=== PATIENT | male | born 1930 | race Caucasian/White ===

== ENCOUNTER 2019-05-18 14:46 | Emergency (ER) | payer MEDICARE, OTHER ==
[~2019-05-18] VITALS: Ht 172.7 cm; Wt 86.6 kg
[~2019-05-18 14:46] MED LIST: ASP325T PO; BICA50TA4 PO; CPR500T PO; DNPZ5T PO; GEMF600T3 PO; GLYB2.5T4 PO; HYDR-91 PO; HYOS0.1216 PO; LISI40TA PO; MTP50T PO; PHEN200T27 PO; SIMV40TA4 PO; TRAM50TA2 PO
--- NOTE | 2019-05-18 14:55 | ED Neurological Problem ---
General Source: patient, family, EMS Exam Limitations: no limitations History of Present Illness Date Seen by Provider: May 18, 2019 Time Seen by Provider: 14:50 Initial Comments 88-year-old male presents with right-sided facial droop and right-sided leg weakness. Patient symptoms started 3 days ago. Patient reports that they were over at the [facility] when it happened. Reports that he knew he had a stroke. Patient got home from [facility] about 15 minutes ago so they called EMS. Patient at this time states he doesn't want anything done. He is here because his called EMS. Patient denies any other systemic complaints. Patient reports a previous TIA. Allergies and Home Medications Allergies Coded Allergies: No Known Drug Allergies (Unverified , 07/08/12) Home Medications Aspirin 325 Mg Tab, 325 MG PO DAILY, (Reported) Bicalutamide 50 Mg Tablet, 50 MG PO DAILY, (Reported) Ciprofloxacin 500 Mg Tablet, 1 TAB PO BID, (Reported) Donepezil Hcl 5 Mg Tablet, 1 TAB PO DAILY, (Reported) Gemfibrozil 600 Mg Tablet, 1 EACH PO BID, (Reported) Glyburide 2.5 Mg Tablet, 1 EACH PO DAILY, (Reported) Hydrocodone Bit/Acetaminophen 1 Each Tablet, 1-2 EA PO Q4HR PRN, (Reported) Hyoscyamine Sulfate 0.125 Mg Tab, 1-2 EACH PO Q4HR PRN, (Reported) Lisinopril 40 Mg Tablet, 40 MG PO DAILY, (Reported) Metoprolol Tartrate 50 Mg Tablet, 1 EACH PO BID, (Reported) Phenazopyridine Hcl 200 Mg Tablet, 1 EACH PO TID PRN, (Reported) Simvastatin 40 Mg Tablet, 40 MG PO HS, (Reported) Tramadol Hcl 50 Mg Tablet, 50-100 MG PO Q6H PRN, (Reported) Patient Home Medication List Home Medication List Reviewed: Yes Review of Systems Review of Systems Constitutional: see HPI; No chills, No fever Eyes: No Symptoms Reported Ears, Nose, Mouth, Throat: see HPI Respiratory: no symptoms reported Cardiovascular: no symptoms reported Gastrointestinal: no symptoms reported Genitourinary: no symptoms reported Musculoskeletal: see HPI Skin: no symptoms reported Psychiatric/Neurological: See HPI Past Knkutmq-Awuhut-Lxiolh Hx Past Med/Social Hx: Reviewed Nursing Past Med/Soc Hx Immunizations Up To Date Date of Influenza Vaccine: Feb 26, 2012 Physical Exam Vital Signs Vital Signs - First Documented 05/18/19 14:46 Temp 37.8 Pulse 50 Resp 18 B/P (MAP) 171/69 (103) Pulse Ox 97 O2 Delivery Room Air Capillary Refill : Height, Weight, BMI Height: '" Weight: lbs. oz. kg; BMI Method: General Appearance: no apparent distress Respiratory: chest non-tender, lungs clear Cardiovascular: normal peripheral pulses, regular rate, rhythm Neurologic/Psychiatric: alert, normal mood/affect, oriented x 3, other (patient with obvious right-sided facial droop along with decreased rate weakness to the right lower extremity. He is unable to lift it against gravity. He can move it. Patient is able to move his upper extremity with no issues. Patient denies any vision changes.) Crainal Nerves: PERRL Motor/Sensory: weak motor strength RLE Skin: normal color, warm/dry Lymphatic: no adenopathy Progress/Results/Core Measures Results/Orders Lab Results Laboratory Tests Test 05/18/19 15:25 05/18/19 15:35 Range/Units White Blood Count 7.2 4.3-11.0 10^3/uL Red Blood Count 4.84 4.35-5.85 10^6/uL Hemoglobin 14.6 13.3-17.7 G/DL Hematocrit 46 40-54 % Mean Corpuscular Volume 94 80-99 FL Mean Corpuscular Hemoglobin 30 25-34 PG Mean Corpuscular Hemoglobin Concent 32 32-36 G/DL Red Cell Distribution Width 13.3 10.0-14.5 % Platelet Count 170 130-400 10^3/uL Mean Platelet Volume 9.6 7.4-10.4 FL Neutrophils (%) (Auto) 69 42-75 % Lymphocytes (%) (Auto) 19 12-44 % Monocytes (%) (Auto) 10 0-12 % Eosinophils (%) (Auto) 2 0-10 % Basophils (%) (Auto) 1 0-10 % Neutrophils # (Auto) 4.9 1.8-7.8 X 10^3 Lymphocytes # (Auto) 1.3 1.0-4.0 X 10^3 Monocytes # (Auto) 0.7 0.0-1.0 X 10^3 Eosinophils # (Auto) 0.1 0.0-0.3 10^3/uL Basophils # (Auto) 0.0 0.0-0.1 10^3/uL Sodium Level 142 135-145 MMOL/L Potassium Level 5.4 H 3.6-5.0 MMOL/L Chloride Level 105 98-107 MMOL/L Carbon Dioxide Level 24 21-32 MMOL/L Anion Gap 13 5-14 MMOL/L Blood Urea Nitrogen 27 H 7-18 MG/DL Creatinine 1.66 H 0.60-1.30 MG/DL Estimat Glomerular Filtration Rate 39 BUN/Creatinine Ratio 16 Glucose Level 112 H 70-105 MG/DL Calcium Level 9.4 8.5-10.1 MG/DL Corrected Calcium 9.5 8.5-10.1 MG/DL Total Bilirubin 0.5 0.1-1.0 MG/DL Aspartate Amino Transf (AST/SGOT) 22 5-34 U/L Alanine Aminotransferase (ALT/SGPT) 11 0-55 U/L Alkaline Phosphatase 69 40-136 U/L Total Protein 6.7 6.4-8.2 GM/DL Albumin 3.9 3.2-4.5 GM/DL Urine Color YELLOW Urine Clarity CLEAR Urine pH 5.5 5-9 Urine Specific Mobile >1.030 1.016-1.022 Urine Protein TRACE NEGATIVE Urine Glucose (UA) NEGATIVE NEGATIVE Urine Ketones NEGATIVE NEGATIVE Urine Nitrite NEGATIVE NEGATIVE Urine Bilirubin NEGATIVE NEGATIVE Urine Urobilinogen 0.2 < = 1.0 MG/DL Urine Leukocyte Esterase NEGATIVE NEGATIVE Urine RBC (Auto) NEGATIVE NEGATIVE Urine RBC NONE /HPF Urine WBC NONE /HPF Urine Squamous Epithelial Cells 0-2 /HPF Urine Crystals NONE /LPF Urine Bacteria NONE /HPF Urine Casts NONE /LPF Urine Mucus TRACE /LPF Urine Culture Indicated NO My Orders Orders - COURTNEY,MARCUS L DO Ct Head Wo-R/O Stroke (05/18/19 15:03) Cbc With Automated Diff (05/18/19 15:16) Comprehensive Metabolic Panel (05/18/19 15:16) Ua Culture If Indicated (05/18/19 15:16) Vital Signs/I&O 05/18/19 05/18/19 14:46 15:40 Temp 37.8 Pulse 50 45 Resp 18 16 B/P (MAP) 171/69 (103) 166/67 Pulse Ox 97 95 O2 Delivery Room Air Progress Progress Note : Time: 16:00 Progress Note Patient is adamant he does not want to be admitted. Family was requesting transfer to an elevated but patient states that he does not want to be transferred. We were able to get patient up and ambulate using a walker. Which he was able to do. We called and made an appointment for [address] Alvarez office. Patient will be discharged home as requested Departure Impression Primary Impression: CVA (cerebral vascular accident) Qualified Codes: I63.9 - Cerebral infarction, unspecified Additional Impression: Weakness of right side of body Disposition: HOME, SELF-CARE Condition: Improved Departure-Patient Inst. Referrals: ANABEL CARR MD (PCP/Family) Primary Care Physician Patient Instructions: Transient Ischemic Attack (DC), Right-Side Stroke Add. Discharge Instructions: Keep appointment for 220 tomorrow afternoon at [facility]. Return to the ER as needed MARCUS COURTNEY DO May 18, 2019 14:55
[2019-05-18 15:35] LABS: BASOPHILS % (AUTO) 1 % (0-10); EOSINOPHILS # (AUTO) 0.1 10^3/uL (0.0-0.3); EOSINOPHILS % (AUTO) 2 % (0-10); HEMATOCRIT 46 % (40-54); HEMOGLOBIN 14.6 G/DL (13.3-17.7); LYMPHOCYTES # (AUTO) 1.3 X 10^3 (1.0-4.0); LYMPHOCYTES % (AUTO) 19 % (12-44); MEAN CORPUSCULAR HEMOGLOBIN 30 PG (25-34); MEAN CORPUSCULAR HGB CONC 32 G/DL (32-36); MEAN CORPUSCULAR VOLUME 94 FL (80-99); MEAN PLATELET VOLUME 9.6 FL (7.4-10.4); MONOCYTES # (AUTO) 0.7 X 10^3 (0.0-1.0); MONOCYTES % (AUTO) 10 % (0-12); NEUTROPHILS # (AUTO) 4.9 X 10^3 (1.8-7.8); NEUTROPHILS % (AUTO) 69 % (42-75); PLATELET COUNT 170 10^3/uL (130-400); RED CELL DISTRIBUTION WIDTH 13.3 % (10.0-14.5); WHITE BLOOD COUNT 7.2 10^3/uL (4.3-11.0)
--- NOTE | 2019-05-18 15:35 | Diagnostic Imaging Report ---
PROCEDURE: CT head wo r/o stroke. TECHNIQUE: Multiple contiguous axial images were obtained through the brain without the use of intravenous contrast. Auto Exposure Controls were utilized during the CT exam to meet ALARA standards for radiation dose reduction. INDICATION: Right-sided weakness and facial droop. History of prior TIAs. COMPARISON: None. FINDINGS: A right frontal approach [employer] PERSON shunt is seen with the tip in the third ventricle. 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 Focal decreased attenuation is seen in the left cerebellar hemisphere. Old infarct is noted in the left frontal lobe. Scattered chronic microvascular disease is visualized in the periventricular and subcortical white matter. No large acute territorial ischemia is seen. Generalized parenchymal volume loss is noted. No evidence of acute hydrocephalus. The paranasal sinuses and mastoid air cells are well pneumatized. Bilateral lens implants are noted. No acute skull fractures are seen. IMPRESSION: 1. No evidence of large acute territorial ischemia. 2. Likely old infarcts are seen involving the left frontal lobe and left cerebellar hemisphere. These likely contribute to chronic right-sided weakness. Additional areas of scattered chronic microvascular disease are present. Consider brain MRI to further evaluate if symptoms continue. 3. Right frontal approach [employer] PERSON shunt with the tip in the third ventricle. 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 No evidence of obstructive hydrocephalus. Dictated by: Dictated on workstation # [id number]
[2019-05-18 15:40] VITALS: BP 166/67
[2019-05-18 15:43] LABS: BILIRUBIN,URINE NEGATIVE (NEGATIVE); CLARITY,URINE CLEAR; COLOR,URINE YELLOW; GLUCOSE, URINE (UA) NEGATIVE (NEGATIVE); KETONES,URINE NEGATIVE (NEGATIVE); LEUKOCYTE ESTERASE ,URINE NEGATIVE (NEGATIVE); NITRITE,URINE NEGATIVE (NEGATIVE); PH,URINE 5.5 (5-9); PROTEIN,URINE TRACE (NEGATIVE); SQUAMOUS EPITHELIAL CELL,UR 0-2 /HPF
[2019-05-18 15:53] LABS: CREATININE SERUM 1.66 MG/DL (0.60-1.30); POTASSIUM 5.4 MMOL/L (3.6-5.0)
[2019-05-18 15:54] LABS: ALBUMIN 3.9 GM/DL (3.2-4.5); BILIRUBIN,TOTAL 0.5 MG/DL (0.1-1.0); CALCIUM 9.4 MG/DL (8.5-10.1); TOTAL PROTEIN 6.7 GM/DL (6.4-8.2)
--- NOTE | 2019-05-18 16:00 | NUR ---
Patient ambulated with walker approximately 50 feet without difficulty.
[2019-05-18 16:20] VITALS: BP 151/68
== END 2019-05-18 16:20 | disposition home or self-care (01) ==
LOC: EDUNIT# 14:46 → ER FS 14:48
DX: I63.9 Cerebral infarction, unspecified (principal); Z79.82 Long term (current) use of aspirin
CPT/HCPCS: 36415; 70450; 80053; 81000; 85025

== ENCOUNTER → 2019-11-06 | Outpatient (CLI) | payer MEDICARE ==
[2019-11-06 12:24] LABS: BILIRUBIN,TOTAL 0.6 MG/DL (0.1-1.0); CALCIUM 9.1 MG/DL (8.5-10.1); CREATININE SERUM 1.71 MG/DL (0.60-1.30); POTASSIUM 4.5 MMOL/L (3.6-5.0)
[2019-11-06 12:25] LABS: ALBUMIN 4.1 GM/DL (3.2-4.5); TOTAL PROTEIN 6.6 GM/DL (6.4-8.2)
== END ==
LOC: LAB FS 11:19
PROVIDERS: ATTEND Family Medicine
DX: E78.00 Pure hypercholesterolemia, unspecified (principal); E11.9 Type 2 diabetes mellitus without complications; Z79.899 Other long term (current) drug therapy
CPT/HCPCS: 36415; 80053; 80061; 83036

== ENCOUNTER → 2019-12-24 | Outpatient (CLI) | payer MEDICARE | LOC: WOUNDCARE 08:55 | PROVIDERS: ATTEND Surgery | DX: E11.621 Type 2 diabetes mellitus with foot ulcer (principal); E11.52 Type 2 diabetes mellitus with diabetic peripheral angiopathy with gangrene; L97.512 Non-pressure chronic ulcer of other part of right foot with fat layer exposed; I70.235 Atherosclerosis of native arteries of right leg with ulceration of other part of foot ==

== ENCOUNTER → 2020-01-30 | Outpatient (CLI) | payer MEDICARE | LOC: LAB FS 16:53 | PROVIDERS: ATTEND Family Medicine | DX: L89.892 Pressure ulcer of other site, stage 2 (principal) | CPT/HCPCS: 87070; 87205 ==

== ENCOUNTER 2020-03-30 17:07 | Inpatient (IN) | payer MEDICARE ==
[~2020-03-30] VITALS: Ht 172 cm; Wt 81.8 kg
[2020-03-30] MEDS ORDERED: NS IV 1000 ML 2,000 ML ONE (17:29)
[2020-03-30] MEDS ORDERED: LACTATED RINGERS 1,000 ML IV ONE (17:42)
[2020-03-30] MEDS ORDERED: NS IV 1000 ML 1,000 ML IV SCH ×3 (17:42)
[2020-03-30] MEDS: NS IV ONE ×2 (17:45→19:30)
--- NOTE | 2020-03-30 17:50 | NUR ---
Add'l IV placed RAC as pt fighting staff and RN unable to leave bedside or scan IV fluids being hung to treat hypotension.
--- NOTE | 2020-03-30 17:51 | ED Respiratory ---
General Chief Complaint: Respiratory Problems Stated Complaint: SOA Nursing Triage Note: Pt presents to ED from [facility] with report of positive COVID patient after testing on the . Pt was Sats in low 80's by [facility]. EMS found pt 88% initially and a Duoneb given then O2 at 4L. SaO2 97%. Full Code. Hx stroke and brain anerysm coiled. Source: EMS, senior care records Exam Limitations: other (probably dementia) History of Present Illness Date Seen by Provider: Mar 30, 2020 Time Seen by Provider: 17:46 Initial Comments Apparently the patient is COVID 19 positive and the senior care was noted today to have shortness of breath and low sats. Ambulance was called according to their report he's having trouble getting his albuterol nebulizers sats were in the 80 range she was placed on oxygen given a nebulized treatment and his sats normalize. He was noted to be hypotensive on arrival patient denies any pain or discomfort he looks well overall but is not a accurate historian. Allergies and Home Medications Allergies Coded Allergies: No Known Drug Allergies (Unverified , 07/08/12) Home Medications Aspirin 325 Mg Tab, 325 MG PO DAILY, (Reported) Bicalutamide 50 Mg Tablet, 50 MG PO DAILY, (Reported) Ciprofloxacin 500 Mg Tablet, 1 TAB PO BID, (Reported) Donepezil Hcl 5 Mg Tablet, 1 TAB PO DAILY, (Reported) Gemfibrozil 600 Mg Tablet, 1 EACH PO BID, (Reported) Glyburide 2.5 Mg Tablet, 1 EACH PO DAILY, (Reported) Hydrocodone Bit/Acetaminophen 1 Each Tablet, 1-2 EA PO Q4HR PRN, (Reported) Hyoscyamine Sulfate 0.125 Mg Tab, 1-2 EACH PO Q4HR PRN, (Reported) Lisinopril 40 Mg Tablet, 40 MG PO DAILY, (Reported) Metoprolol Tartrate 50 Mg Tablet, 1 EACH PO BID, (Reported) Phenazopyridine Hcl 200 Mg Tablet, 1 EACH PO TID PRN, (Reported) Simvastatin 40 Mg Tablet, 40 MG PO HS, (Reported) Tramadol Hcl 50 Mg Tablet, 50-100 MG PO Q6H PRN, (Reported) Patient Home Medication List Home Medication List Reviewed: Yes Review of Systems Review of Systems Constitutional: see HPI (review of systems was unable to be performed due to the patient's altered mental status and inability to recall any events) All Other Systems Reviewed Negative Unless Noted: No Past Bfkbqzw-Zkjakk-Gydanl Hx Past Med/Social Hx: Reviewed Nursing Past Med/Soc Hx Patient Social History Alcohol Use: Denies Use Recreational Drug Use: No Smoking Status: Former Smoker Type Used: Cigarettes Former Smoker, Quit: May 28, 1994 2nd Hand Smoke Exposure: No Recent Foreign Travel: No Contact w/Someone Who Travel: No Recent Infectious Disease Expo: Yes (COVID outbreak at [facility]) Recent Hopitalizations: No Physical Abuse: No Sexual Abuse: No Mistreated: No Fear: No Immunizations Up To Date Date of Influenza Vaccine: Jan 26, 2019 Seasonal Allergies Seasonal Allergies: Yes Past Medical History Orthopedic Respiratory: No Cardiac: Yes (STENTS X3 LAST ONE 2003) Aneurysm, High Cholesterol, Hypertension Neurological: Yes (COIL PROCEDURE IN 1998, [employer]CIAL [employer] SHUNT PLACEMENT) TIA Genitourinary: Yes Benign Prostatic Hyperpl Gastrointestinal: No Musculoskeletal: Yes (ARTHRITIS) Endocrine: Yes HEENT: Yes Hearing Impairment: Hard of Hearing Cancer: No Psychosocial: No Integumentary: No Blood Disorders: No Physical Exam Vital Signs - First Documented 03/30/20 17:08 Pulse Ox 97 O2 Delivery Nasal Cannula O2 Flow Rate 4.00 Capillary Refill : Less Than 3 Seconds Height: '" Weight: lbs. oz. kg; 25.00 BMI Method: General Appearance: WD/WN, no apparent distress Eyes: Bilateral Eye Normal Inspection, Bilateral Eye PERRL HEENT: normal ENT inspection; No scleral icterus (R), No scleral icterus (L) Neck: non-tender, full range of motion, supple Respiratory: chest non-tender, lungs clear, normal breath sounds, other (mild tachypnea) Cardiovascular: normal peripheral pulses, regular rate, rhythm, no edema, tachycardia Gastrointestinal: normal bowel sounds, non tender, soft Extremities: normal range of motion, non-tender, normal inspection Neurologic/Psychiatric: sat act instructor II-XII nml as tested, no motor/sensory deficits Skin: normal color, warm/dry Focused Exam Lactate Level 03/30/20 17:25: Lactic Acid Level 3.57*H Lactic Acid Level Laboratory Tests Test 03/30/20 17:25 Lactic Acid Level 3.57 MMOL/L (0.50-2.00) *H Progress/Results/Core Measures Suspected Sepsis Recent Fever Within 48 Hours: No Infection Criteria Present: Documented Infection New/Unexplained Altered Menta: No Sepsis Screen: Possible Severe Sepsis Risk SIRS Temperature: Pulse: 117 Respiratory Rate: 31 Laboratory Tests 03/30/20 17:25: White Blood Count 12.8H Blood Pressure 81 /63 Mean: 69 03/30/20 17:25: Lactic Acid Level 3.57*H Laboratory Tests 03/30/20 17:25: Creatinine 2.52H, INR Comment 1.0, Platelet Count 120L, Total Bilirubin 0.7 Results/Orders Lab Results Laboratory Tests Test 03/30/20 17:25 Range/Units White Blood Count 12.8 H 4.3-11.0 10^3/uL Red Blood Count 4.41 4.35-5.85 10^6/uL Hemoglobin 13.1 L 13.3-17.7 G/DL Hematocrit 40 40-54 % Mean Corpuscular Volume 91 80-99 FL Mean Corpuscular Hemoglobin 30 25-34 PG Mean Corpuscular Hemoglobin Concent 33 32-36 G/DL Red Cell Distribution Width 13.5 10.0-14.5 % Platelet Count 120 L 130-400 10^3/uL Mean Platelet Volume 10.7 H 7.4-10.4 FL Immature Granulocyte % (Auto) 1 % Neutrophils (%) (Auto) 89 H 42-75 % Lymphocytes (%) (Auto) 5 L 12-44 % Monocytes (%) (Auto) 6 0-12 % Eosinophils (%) (Auto) 0 0-10 % Basophils (%) (Auto) 0 0-10 % Neutrophils # (Auto) 11.3 H 1.8-7.8 X 10^3 Lymphocytes # (Auto) 0.6 L 1.0-4.0 X 10^3 Monocytes # (Auto) 0.8 0.0-1.0 X 10^3 Eosinophils # (Auto) 0.0 0.0-0.3 10^3/uL Basophils # (Auto) 0.0 0.0-0.1 10^3/uL Immature Granulocyte # (Auto) 0.1 0.0-0.1 10^3/uL Neutrophils % (Manual) 71 % Lymphocytes % (Manual) 13 % Monocytes % (Manual) 2 % Eosinophils % (Manual) 0 % Basophils % (Manual) 0 % Band Neutrophils 14 % Blood Morphology Comment NORMAL Prothrombin Time 13.6 12.2-14.7 SEC INR Comment 1.0 0.8-1.4 Activated Partial Thromboplast Time 31 24-35 SEC Sodium Level 140 135-145 MMOL/L Potassium Level 4.6 3.6-5.0 MMOL/L Chloride Level 102 98-107 MMOL/L Carbon Dioxide Level 15 L 21-32 MMOL/L Anion Gap 23 H 5-14 MMOL/L Blood Urea Nitrogen 58 H 7-18 MG/DL Creatinine 2.52 H 0.60-1.30 MG/DL Estimat Glomerular Filtration Rate 24 BUN/Creatinine Ratio 23 Glucose Level 222 H 70-105 MG/DL Lactic Acid Level 3.57 *H 0.50-2.00 MMOL/L Calcium Level 9.1 8.5-10.1 MG/DL Corrected Calcium 9.3 8.5-10.1 MG/DL Total Bilirubin 0.7 0.1-1.0 MG/DL Aspartate Amino Transf (AST/SGOT) 26 5-34 U/L Alanine Aminotransferase (ALT/SGPT) 8 0-55 U/L Alkaline Phosphatase 66 40-136 U/L Total Protein 7.2 6.4-8.2 GM/DL Albumin 3.8 3.2-4.5 GM/DL Micro Results Microbiology 03/30/20 Influenza Types A,B Antigen (KARMEN) - Final, Complete My Orders Orders - ZOEY BRITO DO Ns Iv 1000 Ml (Sodium Chloride 0.9%) (03/30/20 17:29) Cbc With Automated Diff (03/30/20 17:42) Comprehensive Metabolic Panel (03/30/20 17:42) Blood Culture (03/30/20 17:42) Sputum Culture (03/30/20 17:42) Urinalysis (03/30/20 17:42) Urine Culture (03/30/20 17:42) Protime With Inr (03/30/20 17:42) Partial Thromboplastin Time (03/30/20 17:42) Chest 1 View Ap/Pa Only (03/30/20 17:42) Ed Iv/Invasive Line Start (03/30/20 17:42) Ed Iv/Invasive Line Start (03/30/20 17:42) Ekg Tracing (03/30/20 17:42) Vital Signs Adult Sepsis Patie Q15M (03/30/20 17:42) O2 (03/30/20 17:42) Lactic Acid Analyzer (03/30/20 17:42) Influenza A And B Antigens (03/30/20 17:42) Lactated Ringers (Lr 1000 Ml Iv Solution (03/30/20 17:42) Ns Iv 1000 Ml (Sodium Chloride 0.9%) (03/30/20 17:42) Ns Iv 1000 Ml (Sodium Chloride 0.9%) (03/30/20 17:42) Ns Iv 1000 Ml (Sodium Chloride 0.9%) (03/30/20 17:42) Ns Iv 1000 Ml (Sodium Chloride 0.9%) (03/30/20 17:45) Covid-19 External Lab Results (03/30/20 17:42) Isolation Central Supply Req (03/30/20 17:42) Manual Differential (03/30/20 17:25) Vital Signs/I&O 03/30/20 03/30/20 03/30/20 03/30/20 17:08 17:09 17:09 17:15 Temp 36.5 36.5 Pulse 117 117 117 Resp 31 31 31 B/P (MAP) 81/63 (69) 81/63 85/53 Pulse Ox 97 99 99 97 O2 Delivery Nasal Cannula Nasal Cannula O2 Flow Rate 4.00 4.00 4.00 4.00 03/30/20 03/30/20 03/30/20 03/30/20 17:30 17:45 18:00 18:15 Pulse 116 115 105 92 Resp 29 29 29 27 B/P (MAP) 73/45 82/46 117/99 129/82 Pulse Ox 99 98 99 100 O2 Flow Rate 3.00 2.00 2.00 0 03/30/20 03/30/20 03/30/20 03/30/20 18:30 18:45 19:00 19:45 Pulse 98 102 102 94 Resp 27 25 B/P (MAP) 158/100 138/90 141/119 116/65 Pulse Ox 100 100 98 94 O2 Delivery Room Air Room Air O2 Flow Rate 0 0 Capillary Refill : Less Than 3 Seconds Blood Pressure Mean: 69 Progress Note : Progress Note Patient is a 89-year-old senior care resident who is brought in code positive for increasing respiratory distress and hypoxemia. The exact timing of his COVID positiveness and his symptomatology has not been able to be verified COVID positive test apparently sometime last week. Patient has several other comorbid problems including prior stroke which is been recent. Differential includes pneumonia COVID pneumonia sepsis UTI plan labs screening respiratory support complains of evaluation and probable admission ECG Initial ECG Impression Date: Mar 30, 2020 Initial ECG Impression Time: 17:38 Initial ECG Rhythm: S.Tach Initial ECG Intervals: QRS (right bundle branch block pattern) Comment EKG shows sinus tachycardia with a right bundle branch block possible evidence of old anterior ID no acute ST segment abnormality detected Departure Impression Primary Impression: COVID-19 Additional Impression: STEVE (acute kidney injury) Disposition: ADMITTED INPATIENT Condition: Improved Admissions Decision to Admit Reason: Admit from ER (General) Time/Decision to Admit Time: 19:23 Transfer Transfer Reason: Exceeds level of care Time Spoke to Accepting Phy: 19:22 Transfer Progress Notes Spoke to Dr. Flores who requested I discussed the patient's transfer with family members prior to transferring I did discuss it with the patient's oldest daughter Janett phone number [phone] who is the medical power of rig welder she did agree that she wanted Mr. Singh transferred and wanted full medical therapy at this time. She was accepted to medical telemetry bed transfer rearranged. Transfer Time: 19:23 Method of Transfer: EMS Departure-Patient Inst. Referrals: ANABEL CARR MD (PCP/Family) Primary Care Physician ZOEY BRITO DO Mar 30, 2020 17:51
[2020-03-30 17:53] LABS: HEMATOCRIT 40 % (40-54); HEMOGLOBIN 13.1 G/DL (13.3-17.7); MEAN CORPUSCULAR HEMOGLOBIN 30 PG (25-34); MEAN CORPUSCULAR HGB CONC 33 G/DL (32-36); MEAN CORPUSCULAR VOLUME 91 FL (80-99); WHITE BLOOD COUNT 12.8 10^3/uL (4.3-11.0)
[2020-03-30 17:54] LABS: BASOPHILS % (AUTO) 0 % (0-10); EOSINOPHILS % (AUTO) 0 % (0-10); LYMPHOCYTES # (AUTO) 0.6 X 10^3 (1.0-4.0); LYMPHOCYTES % (AUTO) 5 % (12-44); MEAN PLATELET VOLUME 10.7 FL (7.4-10.4); MONOCYTES # (AUTO) 0.8 X 10^3 (0.0-1.0); MONOCYTES % (AUTO) 6 % (0-12); NEUTROPHILS # (AUTO) 11.3 X 10^3 (1.8-7.8); NEUTROPHILS % (AUTO) 89 % (42-75); PLATELET COUNT 120 10^3/uL (130-400)
[2020-03-30 18:00] LABS: PROTHROMBIN TIME PATIENT 13.6 SEC (12.2-14.7)
--- NOTE | 2020-03-30 18:00 | NUR ---
Gogo lopez spoke with Ludy from [place] that is managing phone for ED nurses. Brief update given of ER work up orders and will return call when work up complete and plans decided by
--- NOTE | 2020-03-30 18:00 | NUR ---
RN relayed questions to ask to Dr about all the IV fluids ordered and what total amt total to be given. NIBP assessed and Dr reports to administer the 2 L NS and stop, hypotension resolved.
--- NOTE | 2020-03-30 18:15 | NUR ---
Unable to straight cath pt as fighting 2 staff and swearing and ghrabbing. Unable to pass a 15 Fr cath.
--- NOTE | 2020-03-30 18:15 | NUR ---
Pt fighting nurse and hitting and cussing RAC IV begins bleeding profusely at site and IV fluids running with the blood on arm. Catheter is bent and leaking. IV dc'd with explaining to patient he requires 2 IV's and it needs restarted. Pt at this point argues staff doing painful procedures and explained the procedures were explained and pt continued to hit at staff and someone having to hold.
[2020-03-30 18:17] LABS: ALBUMIN 3.8 GM/DL (3.2-4.5); BILIRUBIN,TOTAL 0.7 MG/DL (0.1-1.0); CALCIUM 9.1 MG/DL (8.5-10.1); CREATININE SERUM 2.52 MG/DL (0.60-1.30); POTASSIUM 4.6 MMOL/L (3.6-5.0); TOTAL PROTEIN 7.2 GM/DL (6.4-8.2)
--- NOTE | 2020-03-30 18:30 | NUR ---
Pt had restarted IV by this tag writer to Flory MATTHEW with 22 ga and IV fluid continued and infused the remaining 150 ml.
--- NOTE | 2020-03-30 18:39 | NUR ---
Confirmed with Dr the 2 L bolus given and NIBP 158/115 with fully agitated patient becoming calmer as staff nurse reports no more procedures presently and certainly not if removing them immediately by him. Pt explained Dr may have to offer that if no cooperation and removing tubes/lines a continued threat with explainations having been given that soft wrist restraints may be requested.
--- NOTE | 2020-03-30 18:40 | Diagnostic Imaging Report ---
INDICATION: COVID positive and sepsis. Time of exam: 6:21 PM No prior studies are available for comparison. Heart size is normal. There is some questionable infiltrate in the left base. There also appears to be some minimal patchy infiltrate right mid lung. No effusion or pneumothorax is identified. Pulmonary vascularity is normal. IMPRESSION: Findings concerning for patchy infiltrate right midlung and left base. Dictated by: Dictated on workstation # [id number]
[2020-03-30 18:41] LABS: BAND NEUTROPHILS 14 %; BASOPHILS % (MANUAL) 0 %; EOSINOPHILS % (MANUAL) 0 %; LYMPHOCYTES % (MANUAL) 13 %; MONOCYTES % (MANUAL) 2 %; NEUTROPHILS % (MANUAL) 71 %; RBC MORPH NORMAL
--- NOTE | 2020-03-30 19:15 | NUR ---
Dr Baker called to dgt, Gogo MONTIEL and spoke with all results and discussing pt's Advanced Directives whether there are legal documents and Code status. Dgt wants patient aggressively treated and transferred to [facility] and remain Full Code status.
--- NOTE | 2020-03-30 19:30 | NUR ---
Report to Kimberly Cordova RN. Pt is resting on cart quietly and occas moans or clears throat but no witnessed attempt to get up or tampering with medical equipment. O2 remains off. Intermittant removal of pt's mask.
--- NOTE | 2020-03-30 20:30 | NUR ---
DR. FAGAN NOTIFIED OF PATIENT'S ARRIVAL ON UNIT. NEW ORDERS RECEIVED FOR DECADRON 6 MG PO DAILY AND ZITHROMAX 500 MG IV ONCE DAILY FOR 3 DAYS.
--- NOTE | 2020-03-30 20:43 | NUR ---
Pt report to Kristy ONEAL for room 433. EMS enroute for transfer. Called Gogo his POA to notify of room number.
[2020-03-30 22:05] VITALS: BP 131/61
--- NOTE | 2020-03-30 22:05 | NUR ---
VILMA BOND admitted to room 433-1, with an admitting diagnosis of COVID/STEVE , on 03/30/20 from [place] via [facility], accompanied by EMS STAFF. VILMA BOND introduced to surroundings, call light, bed controls, phone, TV, temperature control, lights, meal times, smoking policy, visitor policy, side rail policy, bathrooms and showers. Patient Rights given to patient in the handbook. VILMA BOND verbalizes understanding that [facility] is not responsible for the loss or damage to any personal effects or valuables that are kept in the patients possession during their hospitalization.
--- NOTE | 2020-03-30 22:30 | NUR ---
TIME CORRECTED FROM PREVIOUS NOTE OF 2029. CORRECT TIME 2229. DR. FAGAN NOTIFIED OF PATIENT'S ARRIVAL ON UNIT. NEW ORDERS RECEIVED FOR DECADRON 6 MG PO DAILY AND ZITHROMAX 500 MG IV ONCE DAILY FOR 3 DAYS.
[2020-03-30 22:59] VITALS: BP 81/61
[2020-03-30] MEDS ORDERED: RT-ALBUTEROL INHALER HFA (VENTOLIN HFA) 18 GM IH PRN (23:15)
[2020-03-30] MEDS: NS IV 1000 ML 1,000 ML IV SCH (23:16)
--- NOTE | 2020-03-30 23:32 | NUR ---
PATIENT RATING PAIN [address] FAGAN NOTIFIED. NEW ORDER RECEIVED FOR TRAMADOL 50 MG PO Q6 PRN. WILL CONTINUE TO MONITOR.
[2020-03-31] VITALS (11 sets, daily range): BP systolic 125–180; BP diastolic 60–88
[2020-03-31 05:50] LABS: BASOPHILS % (AUTO) 0 % (0-10); EOSINOPHILS % (AUTO) 0 % (0-10); HEMATOCRIT 37 % (40-54); HEMOGLOBIN 11.8 g/dL (13.3-17.7); LYMPHOCYTES # (AUTO) 0.5 10^3/uL (1.0-4.0); LYMPHOCYTES % (AUTO) 6 % (12-44); MEAN CORPUSCULAR HEMOGLOBIN 30 pg (25-34); MEAN CORPUSCULAR HGB CONC 32 g/dL (32-36); MEAN CORPUSCULAR VOLUME 93 fL (80-99); MEAN PLATELET VOLUME 10.5 fL (9.0-12.2); MONOCYTES # (AUTO) 0.6 10^3/uL (0.0-1.0); MONOCYTES % (AUTO) 6 % (0-12); NEUTROPHILS # (AUTO) 7.8 10^3/uL (1.8-7.8); NEUTROPHILS % (AUTO) 88 % (42-75); PLATELET COUNT 107 10^3/uL (130-400)
[2020-03-31] MEDS: NS IV 1000 ML 1,000 ML IV SCH ×3 (05:58→20:17)
--- NOTE | 2020-03-31 05:59 | NUR ---
DR. FAGAN NOTIFIED OF DVT SCORE OF 8.
[2020-03-31] MEDS: dexAMETHasone 6 MG TAB (DECADRON) PO SCH (06:00)
[2020-03-31 06:01] LABS: ALBUMIN 2.6 GM/DL (3.2-4.5); POTASSIUM 3.4 MMOL/L (3.6-5.0)
[2020-03-31 06:02] LABS: CALCIUM 6.6 MG/DL (8.5-10.1)
[2020-03-31 06:04] LABS: TOTAL PROTEIN 4.7 GM/DL (6.4-8.2)
[2020-03-31 06:05] LABS: BILIRUBIN,TOTAL 0.5 MG/DL (0.1-1.0)
[2020-03-31 06:07] LABS: CREATININE SERUM 1.63 MG/DL (0.60-1.30)
[2020-03-31 06:10] LABS: MAGNESIUM 1.8 MG/DL (1.6-2.4)
[2020-03-31] MEDS: cefTRIAXone FOR IV USE 1,000 MG in WATER (STERILE) FOR INJECTION 10 ML IV SCH (06:51)
[2020-03-31] MEDS: RT-ALBUTEROL INHALER HFA (VENTOLIN HFA) 18 GM IH SCH ×2 (07:51→22:35)
[2020-03-31] MEDS: AZITHROMYCIN INJECTION 500 MG in NS (IVPB) 250 ML IV SCH (08:33)
[2020-03-31] MEDS ORDERED: MULT-1136 PO (09:12)
[2020-03-31] MEDS ORDERED: LISI40TA PO (09:12)
[2020-03-31] MEDS ORDERED: CYAN-41 PO (09:12)
[2020-03-31] MEDS ORDERED: METO50TA15 PO (09:12)
[2020-03-31] MEDS ORDERED: ASPI325T32 PO (09:12)
[2020-03-31] MEDS ORDERED: CLOP75TA69 PO (09:12)
[2020-03-31] MEDS ORDERED: TRAM50TA3 PO (09:12)
[2020-03-31] MEDS ORDERED: ACET-2650 PO (09:12)
[2020-03-31] MEDS ORDERED: DIPH25CA48 PO (09:12)
[2020-03-31] MEDS ORDERED: DONE10TA41 PO (09:12)
--- NOTE | 2020-03-31 09:15 | NUR ---
THE MED REC WAS ENTERED USING THE PHARMACY ORDERS FROM [facility]
[2020-03-31] MEDS ORDERED: NON-FORMULARY MEDICATION 1 EA EA (Acetaminophen (Tylenol Arthritis) 650 MG) PO PRN (12:15)
[2020-03-31] MEDS ORDERED: RX-TRAMADOL 50 MG (ULTRAM) TAB PPK#4 PO PRN (12:15)
--- NOTE | 2020-03-31 12:35 | NUR ---
CM/SS: Telephone call to Gogo - Daughter and [facility] - [phone]. Per request from JM Anderson. Daughter reports that pt was slated to go to [facility], prior to testing positve for COVID. She does not want pt to return to [facility]. She is ok for pt to go to a skilled facility - anywhere in the [place] area, just does not want pt to return to [facility]. She lives in [place] and would like pt to go there as well, but it really does not matter. This worker will follow up as to discharge plan once more in known. She is given this workers phone number, should she have questions. This worker will follow up.
[2020-03-31] MEDS ORDERED: NS IV 500 ML 500 ML IV SCH (12:42)
[2020-03-31] MEDS ORDERED: ACETAMINOPHEN 325 MG TABLET PO PRN (12:45)
--- NOTE | 2020-03-31 12:51 | History & Physical-Hospitalist ---
History of Present Illness HPI/Chief Complaint she is an 89-year-old male with past medical history of dementia, stroke, hypertension presented to the emergency department due to hypoxia. He is unable to tell me much of his history. History of present illness is limited from the patient due to difficulty hearing. I did call and speak with his daughter Gogo who states that he was diagnosed with COVID on 03/23 and had done well except for some vomiting and diarrhea last week. This resolved but yesterday he developed hypoxia with oxygen saturations of 82 percent prompting evaluation in the ER. He required supplemental oxygen to maintain oxygen satu rations and had a lactic acidosis. He was transferred here for continued management. Source: patient Date Seen 03/31/20 Time Seen by a Provider: 12:40 Attending Physician Rossy Flores MD PCP Josi Ventura MD Referring Physician Date of Admission Mar 30, 2020 at 22:08 Home Medications & Allergies Home Medications Reviewed patient Home Medication Reconciliation performed by pharmacy medication reconciliations gameroom technician and/or nursing. Patients Allergies have been reviewed. Allergies Allergies Coded Allergies No Known Drug Allergies (Unverified07/08/12) Past Ixgwjdo-Hpvbdz-Hheghz Hx Past Med/Social Hx: Reviewed Nursing Past Med/Soc Hx Patient Social History Alcohol Use: Denies Use Recreational Drug Use: No Smoking Status: Former Smoker Former Smoker, Quit: May 28, 1994 Type Used: Cigarettes 2nd Hand Smoke Exposure: No Recent Foreign Travel: No Contact w/other who traveled: No Recent Hopitalizations: No Recent Infectious Disease Expo: Yes Immunizations Up To Date Date of Influenza Vaccine: Jan 26, 2019 Seasonal Allergies Seasonal Allergies: Yes Past Medical History Surgeries: Orthopedic Cardiac: Aneurysm, High Cholesterol, Hypertension Neurological: TIA Genitourinary: Benign Prostatic Hyperpl Hearing Impairment: Hard of Hearing History of Blood Disorders: No Family History FH: melanoma DAUGHTER FH: pulmonary embolism DAUGHTER Rheumatoid arthritis DAUGHTER DAUGHTER Review of Systems ROS-Unable to Obtain: limited by difficulty hearing Constitutional: No chills, No fever; malaise EENTM: no symptoms reported Respiratory: see HPI, short of breath Gastrointestinal: diarrhea Physical Exam Physical Exam Vital Signs Vital Signs - First Documented 03/30/20 17:08 Pulse Ox 97 O2 Delivery Nasal Cannula O2 Flow Rate 4.00 Capillary Refill : Less Than 3 Seconds Height, Weight, BMI Height: '" Weight: lbs. oz. kg; 26.77 BMI Method: General Appearance: No Apparent Distress, Chronically ill HEENT: PERRL/EOMI, Moist Mucous Membranes; No Scleral Icterus (L), No Scleral Icterus (R) Neck: Normal Inspection, Supple Respiratory: Lungs Clear, No Accessory Muscle Use, No Respiratory Distress Cardiovascular: Regular Rate, Rhythm, No Murmur Gastrointestinal: Normal Bowel Sounds, Non Tender, Soft Extremity: No Calf Tenderness, No Pedal Edema Neurologic/Psychiatric: Alert, Other (seemed oriented to person and place but difficult to tell due to hard of hearing) Skin: Normal Color, Warm/Dry, Other (small area of urticaria noted on left anterior upper thigh area) Results Results/Procedures Labs Laboratory Tests 04/01/20 07:30 04/02/20 04:33 Patient resulted labs reviewed. Assessment/Plan Admission Diagnosis Acute Hypoxic Respiratory Failure from COVID19 Admission Status: Inpatient Order (span 2 midnights) Reason for Inpatient Admission: see below Assessment and Plan Acute Hypoxic Respiratory Failure from COVID19 Continue decadron Currently off oxygen but satting 91% Will start remdesivir Discussed EUA status of convalescent plasma with daughter who agrees to treatment IS as he tolerates Dementia history of Stroke No acute needs PT/OT Daughter requests patient not return to [facility] upon discharge HTN Continue home meds Clinical Quality Measures DVT/VTE Risk/Contraindication: Risk Factor Score Per Nursin RFS Level Per Nursing on Admit: 4+=Very High BUBBA PIEDRA MD Mar 31, 2020 12:51
[2020-03-31] MEDS ORDERED: REMDESIVIR INJ 200 MG in NS (IVPB) 210 ML IV NR (13:00)
--- NOTE | 2020-03-31 17:30 | NUR ---
Pt skin assessed. Rt knee, scabs; healing. Coccyx area cleansed of all hardened, dried BM, RN states Pt has been having loose stools recently, with disease process. coccyx reddened, but blanchable. gluteal cleft with scant amount skin, cleansed. barrier cream applied to all. Scrotum reddened et tender with wiping. barrier cream applied. Rt great toe with previous injury has betadine treatment applied to 3.6cm x 1.7cm x 0.0cm hardened, scabbed area. Heels reddened, non-blanchable, soft. Allevyns applied to both heels, pillows to float feet off bed. Will con't to monitor.
[2020-03-31] MEDS: meTOprolol TARTRATE 50 MG (LOPRESSOR) TAB PO SCH (18:33)
[2020-03-31] MEDS: DONEPEZIL 10 MG (ARICEPT) TAB PO SCH (20:11)
[2020-04-01] MEDS: NS IV 1000 ML 1,000 ML IV SCH ×5 (02:26→23:46)
[2020-04-01 04:33] VITALS: BP 135/62
[2020-04-01] MEDS: cefTRIAXone FOR IV USE 1,000 MG in WATER (STERILE) FOR INJECTION 10 ML IV SCH (06:33)
[2020-04-01] MEDS: dexAMETHasone 6 MG TAB (DECADRON) PO SCH (06:33)
[2020-04-01] MEDS: MULTIVIT W/MINERALS TAB (THERAGRAN M) PO SCH (06:33)
[2020-04-01 07:40] LABS: HEMOGLOBIN 12.8 g/dL (13.3-17.7); MEAN PLATELET VOLUME 10.6 fL (9.0-12.2); WHITE BLOOD COUNT 10.6 10^3/uL (4.3-11.0)
[2020-04-01 08:00] LABS: ALBUMIN 3.1 GM/DL (3.2-4.5); BILIRUBIN,TOTAL 0.4 MG/DL (0.1-1.0); CALCIUM 8.2 MG/DL (8.5-10.1); CREATININE SERUM 1.47 MG/DL (0.60-1.30); POTASSIUM 4.8 MMOL/L (3.6-5.0); TOTAL PROTEIN 5.8 GM/DL (6.4-8.2)
[2020-04-01 08:10] VITALS: BP 139/65
[2020-04-01] MEDS ORDERED: NON-FORMULARY MEDICATION 1 EA EA (Multivitamin 1 EACH) PO SCH (09:00)
[2020-04-01] MEDS: meTOprolol TARTRATE 50 MG (LOPRESSOR) TAB PO SCH ×2 (09:25→17:35)
[2020-04-01] MEDS: lisINopril 40 MG (PRINIVIL) TABLET PO SCH (09:25)
[2020-04-01] MEDS: CLOPIDOGREL 75 MG (PLAVIX) TABLET PO SCH (09:25)
[2020-04-01] MEDS: ASPIRIN E.C. 325 MG (ECOTRIN) TABLET PO SCH (09:25)
[2020-04-01] MEDS: AZITHROMYCIN INJECTION 500 MG in NS (IVPB) 250 ML IV SCH (09:26)
--- NOTE | 2020-04-01 11:07 | Progress Note - Hospitalist ---
Subjective HPI/CC On Admission Date Seen by Provider: Apr 01, 2020 Time Seen by Provider: 11:00 she is an 89-year-old male with past medical history of dementia, stroke, hypertension presented to the emergency department due to hypoxia. He is unable to tell me much of his history. History of present illness is limited from the patient due to difficulty hearing. I did call and speak with his daughter Gogo who states that he was diagnosed with COVID on 03/23 and had done well except for some vomiting and diarrhea last week. This resolved but yesterday he developed hypoxia with oxygen saturations of 82 percent prompting evaluation in the ER. He required supplemental oxygen to maintain oxygen saturations and had a lactic acidosis. He was transferred here for continued management. Subjective/Events-last exam Patient has severe dementia Hypoxia remains No pain reported Full code at 89yo with severe dementia is noted Review of Systems Pulmonary: Dyspnea Neurological: Confusion Focused Exam Lactate Level 03/30/20 17:25: Lactic Acid Level 3.57*H Objective Exam Vital Signs Vital Signs Date Time Temp Pulse Resp B/P (MAP) Pulse Ox O2 Delivery O2 Flow Rate FiO2 04/02/20 04:23 35.8 43 18 157/69 (98) 95 Room Air 03/30/20 22:05 0.00 Capillary Refill : Less Than 3 Seconds General Appearance: No Apparent Distress, WD/WN, Anxious, Chronically ill Respiratory: No Accessory Muscle Use, No Respiratory Distress, Decreased Breath Sounds, Wheezing Cardiovascular: Regular Rate, Rhythm Neurologic/Psychiatric: Alert, Disoriented Results/Procedures Lab Laboratory Tests 04/01/20 07:30 04/02/20 04:33 Patient resulted labs reviewed. Assessment/Plan Assessment and Plan Assess & Plan/Chief Complaint Assessment: COVID-19 acute respiratory failure Severe dementia HTN Hypoxia PLan: Med management Prognosis guarded Diagnosis/Problems Diagnosis/Problems (1) COVID-19 Status: Acute (2) STEVE (acute kidney injury) Status: Acute Clinical Quality Measures DVT/VTE Risk/Contraindication: Risk Factor Score Per Nursin RFS Level Per Nursing on Admit: 4+=Very High OSEI PERALES DO Apr 01, 2020 11:07
[2020-04-01 11:20] VITALS: BP 124/59
[2020-04-01] MEDS: RT-ALBUTEROL INHALER HFA (VENTOLIN HFA) 18 GM IH SCH ×2 (11:21→22:43)
--- NOTE | 2020-04-01 13:36 | NUR ---
"RD ASSESSMENT PMHx: dementia; stroke; HTN; hypercholesterolemia; TIA; BPH; PT INTERACTION: Note pt is currently in COVID isolation, per chart review. Note all diet information for nutrition assessment is per Ana María RN or per chart review. Ana María states current appetite appears good. Note avg PO intake 68% x2d, per chart review. Ana María states no issues with nausea, vomiting, constipation, diarrhea, or chewing/swallowing food that she is aware of. Note last BM was 04/01, and pt not currently on bowel regimen per chart review. Note unable to determine recent wt hx, per chart review. ABNORMAL NUTRITION-RELATED LAB VALUES LOW: Ca 8.2; Pro 5.8; alb 3.1; HIGH: Cl 115; BUN 45; cr 1.47 Est. kcal needs: 3740-4653 kcal | 20-25 kcal/kg Est. Pro needs: 65-81 g Pro | 0.8-1.0 g Pro/kg PES STATEMENT: Inadequate oral intake (NI-2.1) related to loss of appetite as evidenced by chart review, communication with RN, and avg PO intake 68% x2d. INTERVENTION: Continue with current diet order of Regular diet. Pt may benefit from nutrition supplementation if PO intake declines. Would encourage pt to eat when able. Will continue to follow and reassess as pt needs, intake, and status change. Caesar Paris, MS RD LD"
[2020-04-01] MEDS: REMDESIVIR INJ 100 MG in NS (IVPB) 230 ML IV SCH (13:53)
[2020-04-01] MEDS: BACLOFEN 10 MG (LIORESAL) TAB PO PRN ×2 (14:00→21:19)
[2020-04-01 16:15] VITALS: BP 173/70
[2020-04-01 20:07] VITALS: BP 145/68
[2020-04-01] MEDS: DONEPEZIL 10 MG (ARICEPT) TAB PO SCH (21:18)
[2020-04-01 23:35] VITALS: BP 139/84
[2020-04-02 04:23] VITALS: BP 157/69
[2020-04-02] MEDS: BACLOFEN 10 MG (LIORESAL) TAB PO PRN (04:46)
[2020-04-02 05:39] LABS: ALBUMIN 2.8 GM/DL (3.2-4.5); POTASSIUM 4.5 MMOL/L (3.6-5.0)
[2020-04-02 05:40] LABS: CALCIUM 7.7 MG/DL (8.5-10.1)
[2020-04-02 05:41] LABS: TOTAL PROTEIN 5.2 GM/DL (6.4-8.2)
[2020-04-02 05:43] LABS: BILIRUBIN,TOTAL 0.4 MG/DL (0.1-1.0)
[2020-04-02 05:45] LABS: CREATININE SERUM 1.29 MG/DL (0.60-1.30)
[2020-04-02] MEDS: MULTIVIT W/MINERALS TAB (THERAGRAN M) PO SCH (06:23)
[2020-04-02] MEDS: cefTRIAXone FOR IV USE 1,000 MG in WATER (STERILE) FOR INJECTION 10 ML IV SCH (06:23)
[2020-04-02] MEDS: dexAMETHasone 6 MG TAB (DECADRON) PO SCH (06:23)
[2020-04-02] MEDS: RT-ALBUTEROL INHALER HFA (VENTOLIN HFA) 18 GM IH SCH ×2 (07:57→19:26)
[2020-04-02 08:00] VITALS: BP 176/83
[2020-04-02] MEDS: meTOprolol TARTRATE 50 MG (LOPRESSOR) TAB PO SCH ×2 (09:03→17:37)
[2020-04-02] MEDS: CLOPIDOGREL 75 MG (PLAVIX) TABLET PO SCH (09:03)
[2020-04-02] MEDS: lisINopril 40 MG (PRINIVIL) TABLET PO SCH (09:04)
[2020-04-02] MEDS: ASPIRIN E.C. 325 MG (ECOTRIN) TABLET PO SCH (09:04)
--- NOTE | 2020-04-02 10:43 | Physical Therapy Progress Note ---
Therapy Progress Note Consulted with physician on therapy intervention. No skilled PT indicated due to patient is a feeder, dependent of 2 and combative with severe confusion and inability to follow direction. Physician agrees. No PT indicated. SARINA PIERRE PT Apr 02, 2020 10:43
[2020-04-02] MEDS: AZITHROMYCIN INJECTION 500 MG in NS (IVPB) 250 ML IV SCH (10:58)
--- NOTE | 2020-04-02 11:34 | Occ Therapy Progress Note ---
Therapy Progress Note PT staff consulted physician about pt status. Charts reviewed by this OT- based on dementia/ prior level of cognition and ADL assist needed, pt's status will not benefit from skilled OT tx. Issa/boris. MARA WRIGHT OTR Apr 02, 2020 11:34
--- NOTE | 2020-04-02 11:53 | Progress Note - Hospitalist ---
Subjective HPI/CC On Admission Date Seen by Provider: Apr 02, 2020 Time Seen by Provider: 11:30 she is an 89-year-old male with past medical history of dementia, stroke, hypertension presented to the emergency department due to hypoxia. He is unable to tell me much of his history. History of present illness is limited from the patient due to difficulty hearing. I did call and speak with his daughter Gogo who states that he was diagnosed with COVID on 03/23 and had done well except for some vomiting and diarrhea last week. This resolved but yesterday he developed hypoxia with oxygen saturations of 82 percent prompting evaluation in the ER. He required supplemental oxygen to maintain oxygen saturations and had a lactic acidosis. He was transferred here for continued management. Subjective/Events-last exam Pt so demented that he cant really tell me anything SOB continues but will heplock IV fluid and he is doing well otherwise Review of Systems General: Fatigue Pulmonary: Cough Neurological: Confusion Focused Exam Lactate Level Objective Exam Vital Signs Vital Signs Date Time Temp Pulse Resp B/P (MAP) Pulse Ox O2 Delivery O2 Flow Rate FiO2 04/02/20 20:49 35.6 45 18 96 Room Air 04/02/20 19:26 2.00 Capillary Refill : Less Than 3 Seconds General Appearance: No Apparent Distress, WD/WN, Chronically ill Respiratory: Lungs Clear, Decreased Breath Sounds Cardiovascular: Regular Rate, Rhythm Neurologic/Psychiatric: Alert, Disoriented Results/Procedures Lab Laboratory Tests 04/02/20 04:33 Patient resulted labs reviewed. Assessment/Plan Assessment and Plan Assess & Plan/Chief Complaint Assessment: COVID-19 acute respiratory failure Severe dementia HTN Hypoxia PLan: Med management Prognosis guarded Diagnosis/Problems Diagnosis/Problems (1) COVID-19 Status: Acute (2) STEVE (acute kidney injury) Status: Acute Clinical Quality Measures DVT/VTE Risk/Contraindication: Risk Factor Score Per Nursin RFS Level Per Nursing on Admit: 4+=Very High OSEI PERALES DO Apr 02, 2020 11:53
[2020-04-02 12:00] VITALS: BP 168/76
[2020-04-02] MEDS: NS IV 1000 ML 1,000 ML IV SCH (12:15)
[2020-04-02] MEDS: REMDESIVIR INJ 100 MG in NS (IVPB) 230 ML IV SCH (14:52)
[2020-04-02 15:56] VITALS: BP 141/95
[2020-04-02] MEDS: DONEPEZIL 10 MG (ARICEPT) TAB PO SCH (21:00)
--- NOTE | 2020-04-02 23:31 | NUR ---
Received phone call from daughter Gogo, calling for update, provided pt access code. Daughter aware of Pt change in mental status, Pt unable to communicate with staff intelligibly this shift. took several ques for Pt to swallow medication, with some coughing noted after swallowing. Pt agitated this shift. grabbed staff members arm when turning pt. Pt noted to have chronic back pain, turning pt exacerbates this pain. Pt also noted to be fidgiting with blood pressure cuff, IV line, and removed one of his heel protectors. Will continue to monitor change in behavior.
[2020-04-03] VITALS (7 sets, daily range): BP systolic 148–218; BP diastolic 79–91
[2020-04-03] MEDS: dexAMETHasone 6 MG TAB (DECADRON) PO SCH (06:11)
[2020-04-03] MEDS: MULTIVIT W/MINERALS TAB (THERAGRAN M) PO SCH (06:11)
[2020-04-03] MEDS: cefTRIAXone FOR IV USE 1,000 MG in WATER (STERILE) FOR INJECTION 10 ML IV SCH (06:12)
[2020-04-03 07:22] LABS: ALBUMIN 3.2 GM/DL (3.2-4.5); POTASSIUM 4.9 MMOL/L (3.6-5.0)
[2020-04-03 07:24] LABS: CALCIUM 8.4 MG/DL (8.5-10.1)
[2020-04-03 07:25] LABS: TOTAL PROTEIN 5.7 GM/DL (6.4-8.2)
[2020-04-03 07:26] LABS: BILIRUBIN,TOTAL 0.4 MG/DL (0.1-1.0)
[2020-04-03 07:28] LABS: CREATININE SERUM 1.21 MG/DL (0.60-1.30)
[2020-04-03] MEDS: RT-ALBUTEROL INHALER HFA (VENTOLIN HFA) 18 GM IH SCH ×2 (08:24→19:29)
[2020-04-03] MEDS: CLOPIDOGREL 75 MG (PLAVIX) TABLET PO SCH (08:45)
[2020-04-03] MEDS: ASPIRIN E.C. 325 MG (ECOTRIN) TABLET PO SCH (08:45)
[2020-04-03] MEDS: meTOprolol TARTRATE 50 MG (LOPRESSOR) TAB PO SCH ×2 (08:45→16:47)
[2020-04-03] MEDS: lisINopril 40 MG (PRINIVIL) TABLET PO SCH (08:45)
--- NOTE | 2020-04-03 12:59 | Progress Note - Hospitalist ---
Subjective HPI/CC On Admission Date Seen by Provider: Apr 03, 2020 Time Seen by Provider: 12:20 she is an 89-year-old male with past medical history of dementia, stroke, hypertension presented to the emergency department due to hypoxia. He is unable to tell me much of his history. History of present illness is limited from the patient due to difficulty hearing. I did call and speak with his daughter Gogo who states that he was diagnosed with COVID on 03/23 and had done well except for some vomiting and diarrhea last week. This resolved but yesterday he developed hypoxia with oxygen saturations of 82 percent prompting evaluation in the ER. He required supplemental oxygen to maintain oxygen saturations and had a lactic acidosis. He was transferred here for continued management. Subjective/Events-last exam Confused unable to answer any questions. Sleeping but arouses to verbal stimulation doesn't appear to be in acute distress. Objective Exam Vital Signs Vital Signs Date Time Temp Pulse Resp B/P (MAP) Pulse Ox O2 Delivery O2 Flow Rate FiO2 04/03/20 12:00 36.0 46 20 189/83 (118) 97 Room Air 04/03/20 08:24 2.00 Capillary Refill : Less Than 3 Seconds General Appearance: No Apparent Distress, Chronically ill Respiratory: Accessory Muscle Use (mild), Rales, Wheezing Cardiovascular: Regular Rate, Rhythm, No Murmur Results/Procedures Lab Laboratory Tests 04/03/20 07:00 Patient resulted labs reviewed. Assessment/Plan Assessment and Plan Assess & Plan/Chief Complaint Assess & Plan/Chief Complaint Assessment: COVID-19 acute respiratory failure prognosis remains poor Severe dementia with delerium due to COVID most likely will check UA. HTN Hypoxia Critical Care Critically Ill Patient Clinical Quality Measures DVT/VTE Risk/Contraindication: Risk Factor Score Per Nursin RFS Level Per Nursing on Admit: 4+=Very High JUAN PABLO VILLASENOR MD Apr 03, 2020 12:59
[2020-04-03] MEDS: REMDESIVIR INJ 100 MG in NS (IVPB) 230 ML IV SCH (13:20)
[2020-04-03] MEDS ORDERED: ZIPRASIDONE 20 MG INJ (GEODON) VIAL IM NR (16:42)
[2020-04-03] MEDS ORDERED: ZIPRASIDONE INJECTION 20 MG in WATER (STERILE) FOR INJECTION 1.2 ML IM ONE (16:45)
[2020-04-03] MEDS ORDERED: ZIPRASIDONE 20 MG INJ (GEODON) VIAL IM PRN (16:45)
[2020-04-03] MEDS ORDERED: amLODIPine 5 MG (NORVASC) TAB ONE (16:48)
[2020-04-03] MEDS ORDERED: WATER (STERILE) FOR INJECTION 10 ML ONE (16:49)
[2020-04-03] MEDS ORDERED: amLODIPine 5 MG (NORVASC) TAB PO PRN (17:00)
[2020-04-03] MEDS: DONEPEZIL 10 MG (ARICEPT) TAB PO SCH (21:20)
[2020-04-04] VITALS (7 sets, daily range): BP systolic 175–211; BP diastolic 77–101
--- NOTE | 2020-04-04 06:24 | NUR ---
Patient refused morning labs.
[2020-04-04] MEDS: cefTRIAXone FOR IV USE 1,000 MG in WATER (STERILE) FOR INJECTION 10 ML IV SCH (07:00)
[2020-04-04] MEDS: dexAMETHasone 6 MG TAB (DECADRON) PO SCH (07:08)
[2020-04-04] MEDS: MULTIVIT W/MINERALS TAB (THERAGRAN M) PO SCH (07:08)
[2020-04-04] MEDS: RT-ALBUTEROL INHALER HFA (VENTOLIN HFA) 18 GM IH SCH ×3 (09:11→19:58)
[2020-04-04] MEDS: meTOprolol TARTRATE 50 MG (LOPRESSOR) TAB PO SCH ×3 (09:36→18:14)
--- NOTE | 2020-04-04 09:36 | NUR ---
B/P prior to a.m. medications was 186/88, HR was 61.
[2020-04-04] MEDS: CLOPIDOGREL 75 MG (PLAVIX) TABLET PO SCH (09:41)
[2020-04-04] MEDS: lisINopril 40 MG (PRINIVIL) TABLET PO SCH (09:41)
[2020-04-04] MEDS: ASPIRIN E.C. 325 MG (ECOTRIN) TABLET PO SCH (09:43)
--- NOTE | 2020-04-04 12:18 | Progress Note - Hospitalist ---
Subjective HPI/CC On Admission Date Seen by Provider: Apr 04, 2020 Time Seen by Provider: 12:14 she is an 89-year-old male with past medical history of dementia, stroke, hypertension presented to the emergency department due to hypoxia. He is unable to tell me much of his history. History of present illness is limited from the patient due to difficulty hearing. I did call and speak with his daughter Gogo who states that he was diagnosed with COVID on 03/23 and had done well except for some vomiting and diarrhea last week. This resolved but yesterday he developed hypoxia with oxygen saturations of 82 percent prompting evaluation in the ER. He required supplemental oxygen to maintain oxygen saturations and had a lactic acidosis. He was transferred here for continued management. Subjective/Events-last exam After receiving [place] yesterday the patient was able to sleep. He is much more alert this morning although he does not believe that he is ill and does not know why he is in the hospital. He denies pain shortness of breath chills or fever. Speech is understandable today which is an improvement Objective Exam Vital Signs Vital Signs Date Time Temp Pulse Resp B/P (MAP) Pulse Ox O2 Delivery O2 Flow Rate FiO2 04/04/20 11:15 35.6 61 96 28 04/04/20 08:00 18 186/88 (120) Nasal Cannula 2.00 Capillary Refill : Less Than 3 Seconds General Appearance: No Apparent Distress Respiratory: Other (Diminished breath sounds in both bases with fine rales no wheezing or rhonchi noted anterior chest clear) Cardiovascular: Regular Rate, Rhythm, No Edema, No Gallop, No JVD, No Murmur, Normal Peripheral Pulses Gastrointestinal: Normal Bowel Sounds, No Organomegaly, No Pulsatile Mass, Non Tender, Soft Extremity: Normal Inspection, Non Tender, Other (Trace pretibial edema bilaterally) Results/Procedures Lab Patient resulted labs reviewed. Assessment/Plan Assessment and Plan Assess & Plan/Chief Complaint Assess & Plan/Chief Complaint Assessment: COVID-19 acute respiratory failure prognosis remains poor however patient is slowly improving. Severe dementia with delerium due to COVID most likely improved. Staff of not been able to get a UA patient too agitated to attempt straight cath just advised bladder scan to rule out any evidence for obstruction. HTN Hypoxia Critical Care Critically Ill Patient Clinical Quality Measures DVT/VTE Risk/Contraindication: Risk Factor Score Per Nursin RFS Level Per Nursing on Admit: 4+=Very High JUAN PABLO VILLASENOR MD Apr 04, 2020 12:17
[2020-04-04] MEDS: REMDESIVIR INJ 100 MG in NS (IVPB) 230 ML IV SCH (12:38)
--- NOTE | 2020-04-04 18:00 | NUR ---
LAB HERE AGAIN THIS EVENING TO TRY TO OBTAIN A.M. LABS. PATIENT REFUSED AGAIN. THIS RN WILL CONTINUE TO MONITOR THIS PATIENT THROUGHOUT THE REMAINDER OF THIS SHIFT.
--- NOTE | 2020-04-04 18:17 | NUR ---
PATIENT B/P AT 1800 WAS 191/83, PULSE WAS 50. METOPROLOL HELD FOR BRADYCARDIA. DR. VILLASENOR IS AWARE OF ELEVATED B/P'S AND PRN MEDICATION HAVE BEEN ORDERED WITH PARAMETERS.
[2020-04-04] MEDS: amLODIPine 5 MG (NORVASC) TAB PO PRN (21:34)
[2020-04-04] MEDS: DONEPEZIL 10 MG (ARICEPT) TAB PO SCH (21:34)
[2020-04-05 00:20] VITALS: BP 194/90
[2020-04-05 03:22] VITALS: BP_SYST 180; BP_SYST 194; BP_DIAS 86; BP_DIAS 90
[2020-04-05 04:52] LABS: ALBUMIN 3.1 GM/DL (3.2-4.5)
[2020-04-05 04:54] LABS: CALCIUM 8.4 MG/DL (8.5-10.1)
[2020-04-05 04:55] LABS: TOTAL PROTEIN 5.6 GM/DL (6.4-8.2)
[2020-04-05 04:57] LABS: BILIRUBIN,TOTAL 0.6 MG/DL (0.1-1.0)
[2020-04-05 04:59] LABS: CREATININE SERUM 1.23 MG/DL (0.60-1.30)
[2020-04-05] MEDS: dexAMETHasone 6 MG TAB (DECADRON) PO SCH (05:50)
[2020-04-05] MEDS: MULTIVIT W/MINERALS TAB (THERAGRAN M) PO SCH (06:00)
[2020-04-05 08:00] VITALS: BP 209/88
[2020-04-05] MEDS: RT-ALBUTEROL INHALER HFA (VENTOLIN HFA) 18 GM IH SCH (08:08)
[2020-04-05] MEDS: meTOprolol TARTRATE 50 MG (LOPRESSOR) TAB PO SCH ×3 (08:30→18:03)
[2020-04-05] MEDS: lisINopril 40 MG (PRINIVIL) TABLET PO SCH (08:30)
[2020-04-05] MEDS: amLODIPine 5 MG (NORVASC) TAB PO PRN (08:30)
[2020-04-05] MEDS: CLOPIDOGREL 75 MG (PLAVIX) TABLET PO SCH (08:30)
[2020-04-05] MEDS: ASPIRIN E.C. 325 MG (ECOTRIN) TABLET PO SCH (08:33)
[2020-04-05 12:00] VITALS: BP 145/75
--- NOTE | 2020-04-05 12:00 | NUR ---
Patient wounds assessed. Heals continue to be pink, blanchable; staff using heal floaters and pillows. Patient Right great toe has had betadine previously applied, no change in size at this time. coccyx area pink, blanchable, barrier cream applied. scrotum no longer reddened and swollen, left groin fold has small blister, area cleansed, barrier cream applied. Staff using incontinence wraps for urinary incontinence at this time. bed change completed during assessment. will con't to monitor.
[2020-04-05 16:13] VITALS: BP 141/85
--- NOTE | 2020-04-05 17:11 | Physician Query Clarification ---
"Physician Query-General Query to Physician: The medical record reflects the following clinical scenario: History/Risk factors: Covid 19, Advanced age/chronic illness Clinical Findings: HR 117, RR 31, BP 81/63 to 73/45, WBC 12.8, LA 3.57, Covid Pos Treatment: 5L fluid (in ER) IV ABX, Steroids, Remdesivir Question: What condition best reflects the above clinical scenario? Please document response in the Progress notes or Discharge Summary. 1. Severe Sepsis present on admission due to Covid 19 2. Covid 19 (as currently documented) 3. Other , with explanation of the clinical findings 4. Clinically undetermined, no explanation for the clinical findings Please remember a lack of response to the above will prompt a phone page by CDI/coding staff In responding to this query, please exercise your independent professional judgment. The purpose of this communication is to more accurately reflect the complexity of your patients condition. The fact that a question is asked does not imply that any particular answer is desired or expected. Thank you for timely response to this clarification. Ashlyn Balderrama, MSN, RN RN Specialist-Clinical Doc Improvement CD -Health Info Mgmt Operations [address] [facility] t: [phone] | f: [phone] If you are unable to reach me at my extension, I may be working from home. Please contact me at [phone] PHYSICIAN RESPONSE: Based on the clinical findings in the record, please respond to the query above on this document as an addendum. Physician Response: Physician Response would code #1. If you have questions please contact: Tube Making Machine Operator: Ext: Thank you for your time and cooperation. Clinical Candle Molder Hand/Tube Making Machine Operator This is a permanent part of the medical record ASHLYN BALDERRAMA Apr 05, 2020 17:11 JUAN PABLO VILLASENOR MD Apr 06, 2020 09:15"
--- NOTE | 2020-04-05 17:13 | Progress Note - Hospitalist ---
Subjective HPI/CC On Admission Date Seen by Provider: Apr 05, 2020 Time Seen by Provider: 12:10 she is an 89-year-old male with past medical history of dementia, stroke, hypertension presented to the emergency department due to hypoxia. He is unable to tell me much of his history. History of present illness is limited from the patient due to difficulty hearing. I did call and speak with his daughter Gogo who states that he was diagnosed with COVID on 03/23 and had done well except for some vomiting and diarrhea last week. This resolved but yesterday he developed hypoxia with oxygen saturations of 82 percent prompting evaluation in the ER. He required supplemental oxygen to maintain oxygen saturations and had a lactic acidosis. He was transferred here for continued management. Subjective/Events-last exam He says he is feeling the same as he has every day prior. He appears angry and agitated. He says he is feeling fine. He denies any complaints or concerns. Objective Exam Vital Signs Vital Signs Date Time Temp Pulse Resp B/P (MAP) Pulse Ox O2 Delivery O2 Flow Rate FiO2 04/05/20 16:13 35.6 56 18 141/85 (103) 95 Nasal Cannula 2.00 04/04/20 11:15 28 Capillary Refill : Less Than 3 Seconds General Appearance: No Apparent Distress, WD/WN Respiratory: Lungs Clear, Normal Breath Sounds, No Respiratory Distress Cardiovascular: Regular Rate, Rhythm, No Murmur Gastrointestinal: Normal Bowel Sounds, Non Tender, Soft Extremity: Normal Inspection, Non Tender, No Pedal Edema Neurologic/Psychiatric: Alert, Oriented x3, No Motor/Sensory Deficits, Normal Mood/Affect Skin: Normal Color, Warm/Dry Results/Procedures Lab Laboratory Tests 04/05/20 04:15 Patient resulted labs reviewed. Assessment/Plan Assessment and Plan Assess & Plan/Chief Complaint Acute respiratory failure due to COVID-19 Decadron s/p remdesivir s/p convalescent plasma Continue little oxygen as needed, currently on 2 L Dementia Delirium Avoid delirium triggers Reorient as needed HTN Continue home meds DVT Prophylaxis: Lovenox Critical Care Critically Ill Patient Diagnosis/Problems Diagnosis/Problems (1) Acute respiratory failure due to COVID-19 Status: Acute (2) Dementia Status: Chronic (3) Delirium Status: Acute (4) HTN (hypertension) Status: Chronic Clinical Quality Measures DVT/VTE Risk/Contraindication: Risk Factor Score Per Nursin RFS Level Per Nursing on Admit: 4+=Very High REJI GALARZA MD Apr 05, 2020 17:13
[2020-04-05] MEDS ORDERED: PANTOPRAZOLE 40 MG (PROTONIX) TAB PO ONE (17:15)
[2020-04-05] MEDS: ENOXAPARIN 40 MG/0.4 ML (LOVENOX) SYR SC SCH (17:54)
[2020-04-05 20:21] VITALS: BP 160/86
[2020-04-05] MEDS: DONEPEZIL 10 MG (ARICEPT) TAB PO SCH (20:55)
[2020-04-06] VITALS (7 sets, daily range): BP systolic 146–181; BP diastolic 70–92
[2020-04-06] MEDS: RT-ALBUTEROL INHALER HFA (VENTOLIN HFA) 18 GM IH SCH ×3 (03:14→23:33)
[2020-04-06] MEDS: MULTIVIT W/MINERALS TAB (THERAGRAN M) PO SCH (05:43)
[2020-04-06] MEDS: dexAMETHasone 6 MG TAB (DECADRON) PO SCH (05:43)
[2020-04-06] MEDS: CLOPIDOGREL 75 MG (PLAVIX) TABLET PO SCH (08:50)
[2020-04-06] MEDS: ASPIRIN E.C. 325 MG (ECOTRIN) TABLET PO SCH (08:50)
[2020-04-06] MEDS: lisINopril 40 MG (PRINIVIL) TABLET PO SCH (08:50)
[2020-04-06] MEDS: PANTOPRAZOLE 40 MG (PROTONIX) TAB PO SCH ×2 (08:50→08:59)
[2020-04-06] MEDS: meTOprolol TARTRATE 50 MG (LOPRESSOR) TAB PO SCH ×2 (08:51→18:04)
--- NOTE | 2020-04-06 15:36 | Progress Note - Hospitalist ---
Subjective HPI/CC On Admission Date Seen by Provider: Apr 06, 2020 Time Seen by Provider: 12:00 she is an 89-year-old male with past medical history of dementia, stroke, hypertension presented to the emergency department due to hypoxia. He is unable to tell me much of his history. History of present illness is limited from the patient due to difficulty hearing. I did call and speak with his daughter Gogo who states that he was diagnosed with COVID on 03/23 and had done well except for some vomiting and diarrhea last week. This resolved but yesterday he developed hypoxia with oxygen saturations of 82 percent prompting evaluation in the ER. He required supplemental oxygen to maintain oxygen saturations and had a lactic acidosis. He was transferred here for continued management. Subjective/Events-last exam He is sleeping upon my arrival. He is agitated. He says he wants to watch television. He denies any pain. He denies any shortness of breath. He has no other complaints or concerns. Objective Exam Vital Signs Vital Signs Date Time Temp Pulse Resp B/P (MAP) Pulse Ox O2 Delivery O2 Flow Rate FiO2 04/06/20 11:22 36.0 57 20 157/74 (101) 95 Nasal Cannula 2.00 04/04/20 11:15 28 Capillary Refill : Less Than 3 Seconds General Appearance: No Apparent Distress, WD/WN Respiratory: Lungs Clear, Normal Breath Sounds, No Respiratory Distress Cardiovascular: Regular Rate, Rhythm, No Murmur Gastrointestinal: Normal Bowel Sounds, Non Tender, Soft Extremity: Normal Inspection, Non Tender, Pedal Edema Neurologic/Psychiatric: Alert, Oriented x3, No Motor/Sensory Deficits, Normal Mood/Affect Skin: Normal Color, Warm/Dry Results/Procedures Lab Patient resulted labs reviewed. Imaging: Reviewed Imaging Report Assessment/Plan Assessment and Plan Assess & Plan/Chief Complaint Acute respiratory failure due to COVID-19 Decadron s/p remdesivir s/p convalescent plasma Supplemental oxygen as needed, currently on 2 L Dementia Delirium Avoid delirium triggers Reorient as needed HTN Continue home meds DVT Prophylaxis: Lovenox Critical Care Critically Ill Patient Diagnosis/Problems Diagnosis/Problems (1) Acute respiratory failure due to COVID-19 Status: Acute (2) Dementia Status: Chronic (3) Delirium Status: Acute (4) HTN (hypertension) Status: Chronic Clinical Quality Measures DVT/VTE Risk/Contraindication: Risk Factor Score Per Nursin RFS Level Per Nursing on Admit: 4+=Very High REJI GALARZA MD Apr 06, 2020 15:36
--- NOTE | 2020-04-06 16:13 | NUR ---
CM/SS: Visited with daughter as to plan for discharge and referral preferences for pt. Plan: Pt to go to a skilled facility to get stronger and then be admitted to [facility] in [place] where his currently lives Summary: A referral had been made to [facility] [place] - and daughter was not pleased with that. Daughter initially told this worker and wanted pt to be referred to anywhere in the [facility] area. Today, however she reports she does not want pt to go to a facility in [place]. [facility] Daughter knows members of the nursing staff at [place] and would like to see him there. This worker explains that we are limited as some facilities are unable to take residents due to COVID as well as pt's [employer] insurance. She verbalizes understanding.
--- NOTE | 2020-04-06 16:36 | NUR ---
CM/SS: Returned call from daughter - [facility] [place] is unable to take pt's at this time due to COVID.
--- NOTE | 2020-04-06 16:37 | NUR ---
CM/SS: Referral sent to [place] Faxed [phone] phone [phone].
--- NOTE | 2020-04-06 16:38 | NUR ---
CM/SS: Telephone call from [facility] - [phone], she is reviewing the information of pt and has requested an eval from Physical Therapy and Occupational Therapy. This worker will follow up.
[2020-04-06] MEDS: ENOXAPARIN 40 MG/0.4 ML (LOVENOX) SYR SC SCH (18:04)
[2020-04-06 18:45] LABS: BILIRUBIN,URINE NEGATIVE (NEGATIVE); CLARITY,URINE CLEAR; COLOR,URINE YELLOW; GLUCOSE, URINE (UA) 2+ (NEGATIVE); KETONES,URINE NEGATIVE (NEGATIVE); LEUKOCYTE ESTERASE ,URINE NEGATIVE (NEGATIVE); NITRITE,URINE NEGATIVE (NEGATIVE); PH,URINE 5.5 (5-9); PROTEIN,URINE NEGATIVE (NEGATIVE)
[2020-04-06 18:55] LABS: BACTERIA,URINE NEGATIVE /HPF; URIC ACID CRYSTALS,URINE LARGE /LPF
[2020-04-06] MEDS: DONEPEZIL 10 MG (ARICEPT) TAB PO SCH (20:19)
[2020-04-06] MEDS ORDERED: WATER (STERILE) FOR INJECTION 10 ML ONE (21:59)
[2020-04-06] MEDS: ZIPRASIDONE 20 MG INJ (GEODON) VIAL IM PRN (22:09)
[2020-04-06] MEDS: WATER (STERILE) FOR INJ 10 ML BTL IV PRN (22:13)
[2020-04-07 03:41] VITALS: BP 156/80
[2020-04-07] MEDS: dexAMETHasone 6 MG TAB (DECADRON) PO SCH (06:00)
[2020-04-07] MEDS: MULTIVIT W/MINERALS TAB (THERAGRAN M) PO SCH (06:00)
[2020-04-07 08:05] VITALS: BP 166/75
[2020-04-07] MEDS: RT-ALBUTEROL INHALER HFA (VENTOLIN HFA) 18 GM IH SCH ×2 (08:13→19:33)
[2020-04-07] MEDS: meTOprolol TARTRATE 50 MG (LOPRESSOR) TAB PO SCH ×2 (08:54→17:16)
[2020-04-07] MEDS: ASPIRIN E.C. 325 MG (ECOTRIN) TABLET PO SCH (08:54)
[2020-04-07] MEDS: lisINopril 40 MG (PRINIVIL) TABLET PO SCH (08:54)
[2020-04-07] MEDS: PANTOPRAZOLE 40 MG (PROTONIX) TAB PO SCH (08:54)
[2020-04-07] MEDS: CLOPIDOGREL 75 MG (PLAVIX) TABLET PO SCH (08:54)
--- NOTE | 2020-04-07 11:12 | NUR ---
NORI Knight in room at this time, patient refuses all cares, and is aggressive. RN will attempt to turn and change patient as he is incontinent.
[2020-04-07] MEDS: ZIPRASIDONE 20 MG INJ (GEODON) VIAL IM PRN (11:28)
[2020-04-07] MEDS: WATER (STERILE) FOR INJ 10 ML BTL IV PRN (11:28)
[2020-04-07 11:59] VITALS: BP 166/74
--- NOTE | 2020-04-07 13:04 | Physical Therapy Evaluation ---
PT Evaluation-General Medical Diagnosis Admission Date Mar 30, 2020 at 22:08 Medical Diagnosis: hypoxia Onset Date: Mar 30, 2020 Therapy Diagnosis Therapy Diagnosis: impaired mobility, strength, endurance Precautions Precautions/Isolations: Contact Isolation, Droplet Isolation, Fall Prevention Referral Physician: Phil Reason for Referral: Evaluation/Treatment Medical History Pertinent Medical History: CVA, Dementia Additional Medical History Past Medical History Surgeries: Orthopedic Cardiac: Aneurysm, High Cholesterol, Hypertension Neurological: TIA Genitourinary: Benign Prostatic Hyperpl Hearing Impairment: Hard of Hearing Reviewed History: Yes Social History unsure, patient is a poor historian Prior Prior Level of Function SCALE: Activities may be completed with or without assistive devices. 6-Lbuchnhxne-oznzrrg completes the activity by him/herself with no assistance from a helper. 5-Set-up or Clean-up Assistance-helper sets up or cleans up; patient completes activity. [place] assists only prior to or following the activity. 4-Supervision or Touching Assistance-helper provides verbal cues and/or touching/steadying and/or contact guard assistance as patient completes ac tivity. Assistance may be provided throughout the activity or intermittently. 3-Partial/Moderate Assistance-helper does LESS THAN HALF the effort. [place] lifts, holds or supports trunk or limbs, but provides less than half the effort. 2-Substantial/Maximal Assistance-helper does MORE THAN HALF the effort. [place] lifts or holds trunk or limbs and provides more than half the effort. 3-Eaijtkhue-eesvqc does ALL the effort. Patient does none of the effort to complete the activity. Or, the assistance of 2 or more helpers is required for the patient to complete the activity. If activity was not attempted, code reason: 7-Patient Refused. 9-Not Applicable-not attempted and the patient did not perform the activity before the current illness, exacerbation or injury. 10-Not Attempted due to Environmental Limitations-(lack of equipment, weather restraints, etc.). 88-Not Attempted due to Medical Conditions or Safety Concerns. Bed Mobility: 3 Transfers (B,C,W/C): 3 Gait: 3 Patient states he was getting out of bed and performing transfers and even ambulating a bit with assist from another person. PT Evaluation-Current Subjective Patient in bed pre tx, he is uncooperative and aggressive but not combative. He has no complaints of pain at rest. Pt/Family Goals none stated Objective Patient Orientation: Person, Confused Attachments: Oxygen ROM/Strength ROM Lower Extremities WNL Strength Lower Extremities unable to test, patient uncooperative Transfers Roll Left to Right (QC): 1 Sit to Lying (QC): 1 Lying to Sitting/Side of Bed(Q: 1 Sit to Stand (QC): 1 Assisted patient with rolling to each side so nursing can bathe and change brief on patient. Max assist of 2 for supine to sit, attempted to stand but unable to get his bottom off the bed more than a couple of inches. Patient uncooperative with assisting mobility. Balance Sitting Static: Poor Sitting Dynamic: Poor Standing Static: Poor Standing Dynamic: Poor Assessment/Needs Patient has impaired mobility, strength, endurance. He is uncooperative with assisting with functional mobility, aggressive, and agitated. He was not combative though. Rehab Potential: Guarded PT Exchange Operator Goals Exchange Operator Goals PT Longterm Goals Time Frame: Apr 14, 2020 Roll Left & Right (QC): 2 Sit to Lying (QC): 3 Lying-Sitting on Side/Bed(QC): 3 Sit to Stand (QC): 3 Chair/Mgr-fl-Cyfny Xfer(QC): 3 PT Plan Problem List Problem List: Activity Tolerance, Functional Strength, Safety, Balance, Gait, Transfer, Bed Mobility, ROM Treatment/Plan Treatment Plan: Continue Plan of Care Treatment Plan: Bed Mobility, Education, Functional Activity Vasquez, Functional Strength, Gait, Safety, Therapeutic Exercise, Transfers Treatment Duration: Apr 14, 2020 Frequency: 6 times per week Estimated Hrs Per Day: .25 hour per day Patient and/or Family Agrees t: Yes Safety Risks/Education Patient Education: Transfer Techniques, Correct Positioning, Safety Issues Teaching Recipient: Patient Teaching Methods: Demonstration, Discussion Response to Teaching: Reinforcement Needed Discharge Recommendations Plan Patient will perform bed mobility and transfer training, balance and endurance training, functional strengthening, gait training, and education, to improve functional mobility and independence at home. Therapy Discharge Recommendati: 24 Hour Supervision Time/GCodes Time In: 1114 Time Out: 1139 Total Billed Treatment Time: 25 Total Billed Treatment 1 visit RUBI 15' FA 10' TOLU DAVENPORT PT Apr 07, 2020 13:04
--- NOTE | 2020-04-07 14:04 | Occupational Therapy Eval ---
OT Evaluation-General/PLF Medical Diagnosis Admission Date Mar 30, 2020 at 22:08 Medical Diagnosis: hypoxia Onset Date: Mar 30, 2020 Therapy Diagnosis Therapy Diagnosis: decreased ADL status, weakness Precautions Precautions/Isolations: Contact Isolation, Droplet Isolation, Fall Prevention Referral Physician: Phil Olivera Reason: Evaluation/Treatment Medical History Pertinent Medical History: CVA, Dementia, HTN Additional Medical History Surgeries: Orthopedic Cardiac: Aneurysm, High Cholesterol, Hypertension Neurological: TIA Genitourinary: Benign Prostatic Hyperpl Hearing Impairment: Hard of Hearing Current History Pt to ED due to hypoxia Reviewed History: Yes Social History Pt lived at [facility] ADL-Prior Level of Function SCALE: Activities may be completed with or without assistive devices. 3-Oeuttqlpiz-dbfghxf completes the activity by him/herself with no assistance from a helper. 5-Set-up or Clean-up Assistance-helper sets up or cleans up; patient completes activity. [place] assists only prior to or following the activity. 4-Supervision or Touching Assistance-helper provides verbal cues and/or touching/steadying and/or contact guard assistance as patient completes ac tivity. Assistance may be provided throughout the activity or intermittently. 3-Partial/Moderate Assistance-helper does LESS THAN HALF the effort. [place] lifts, holds or supports trunk or limbs, but provides less than half the effort. 2-Substantial/Maximal Assistance-helper does MORE THAN HALF the effort. [place] lifts or holds trunk or limbs and provides more than half the effort. 8-Criunlkbi-xxgzea does ALL the effort. Patient does none of the effort to complete the activity. Or, the assistance of 2 or more helpers is required for the patient to complete the activity. If activity was not attempted, code reason: 7-Patient Refused. 9-Not Applicable-not attempted and the patient did not perform the activity before the current illness, exacerbation or injury. 10-Not Attempted due to Environmental Limitations-(lack of equipment, weather restraints, etc.). 88-Not Attempted due to Medical Conditions or Safety Concerns. ADL PLOF Comments Pt resided in an [facility]. OT talked with pt's daughter Gogo, who indicates at [facility] pt was able to feed himself, brush his teeth with set up assistance, and dress himself, he did require assistance with showering. Pt primarily used a walker for functional mobility, but could transfer between surfaces and walk short distances with walker. Self Care: Needed Some Help Functional Cognition: Needed Some Help OT Current Status Subjective Pt laying in bed, agitated and aggressive towards staff but not combative. Mental Status/Objective Patient Orientation: Person, Confused Attachments: Oxygen Current Glasses/Contacts: Yes Upper Extremity ROM Pt able to hold phone to ear using both hands, pt refused to complete formal UE screen. Upper Extremity Strength unable to test, pt uncooperative. ADL-Treatment Shower/Bathe Self (QC): 1 (sponge bath completed at bed level, pt uncooperative and did not complete any parts of sponge bath. Pt required multiple staff to assist with rolling side to side in order to wash back and buttocks.) Upper Body Dressing (QC): 1 (total assist to change hospital gown.) Lower Body Dressing (QC): 1 (total assist rolling side to side in order to remove soiled brief and don clean brief.) On/Off Footwear (QC): 1 (Total assist to don gripper socks.) Toileting Hygiene (QC): 1 (total assist to change brief and perform hygeine at bed level.) Other Treatments Pt laying in bed, appears agitated and uncooperative with therapy, although he is not combative. Pt dependently rolled side to side in order to change brief and perform sponge bath. Pt's daughter Gogo on the phone throughout tx, en couraging pt to participate with therapy. Pt required Max A x2 to transfer supine to sit EOB. Pt attempted to stand but unable to get his bottom off the bed more than a couple of inches. Pt returned to bed, requiring assist x2. Post OT tx, pt laying in bed, call light in reach and nursing staff present, bed alarm on. Education OT Patient Education: Correct positioning, Modified ADL techniques, Progress toward Goal/Update tx plan, Purpose of tx/functional activities Teaching Recipient: Patient Teaching Methods: Discussion Response to Teaching: Verbalize Understanding OT Card Mounter Goals Card Mounter Goals Time Frame: Apr 16, 2020 Eating (QC): 5 Oral Hygiene (QC): 5 Toileting Hygiene (QC): 3 Shower/Bathe Self (QC): 2 Upper Body Dressing (QC): 3 Lower Body Dressing (QC): 2 On/Off Footwear (QC): 2 Additional Goals: 1-Demonstrate ADL Tasks, 2-Verbalize Understanding, 3- ImproveStrength/Vasquez 1=Demonstrate adherence to instructed precautions during ADL tasks. 2=Patient will verbalize/demonstrate understanding of assistive devices/modifications for ADL. 3=Patient will improve strength/tolerance for activity to enable patient to perform ADL's. OT Education/Plan Problem List/Assessment Assessment: Decreased Activ Tolerance, Decreased Safety Aware, Decreased UE Strength, Dependent Transfers, Impaired Bed Mobility, Impaired Cognition, Impaired Funct Balance, Impaired I ADL's, Impaired Self-Care Skills Discharge Recommendations Plan/Recommendations: Continue POC Therapy Discharge Recommendati: 24 Hour Supervision Treatment Plan/Plan of Care Patient would benefit from OT for education, treatment and training to promote independence in ADL's, mobility, safety and/or upper extremity function for ADL's. Plan of Care: ADL Retraining, Functional Mobility, UE Funct Exercise/Act Treatment Duration: Apr 16, 2020 Frequency: 3 times per week Estimated Hrs Per Day: .25 hour per day Rehab Potential: Guarded Time/GCodes Start Time: 11:14 Stop Time: 11:39 Total Time Billed (hr/min): 25 Billed Treatment Time 1, EVM (10'), ADL (15') HILARY PUENTES OT Apr 07, 2020 14:04
--- NOTE | 2020-04-07 15:25 | NUR ---
CM/SS: Telephone call from daughter Gogo - She is checking on the status of the information sent to [facility]. She is aware that pt is being evaluated by Physical Therapy today and the information will be sent once completed. She wants to talk with pt. The phone is taken to the nurses station, however pt is unable to talk at this time. Staff will call her as physical therapy is working with pt in order for daughter to talk with him and encouraged him.
[2020-04-07 15:48] VITALS: BP 158/70
[2020-04-07] MEDS: ENOXAPARIN 40 MG/0.4 ML (LOVENOX) SYR SC SCH (17:17)
--- NOTE | 2020-04-07 17:43 | Progress Note - Hospitalist ---
Subjective HPI/CC On Admission Date Seen by Provider: Apr 07, 2020 Time Seen by Provider: 11:30 she is an 89-year-old male with past medical history of dementia, stroke, hypertension presented to the emergency department due to hypoxia. He is unable to tell me much of his history. History of present illness is limited from the patient due to difficulty hearing. I did call and speak with his daughter Gogo who states that he was diagnosed with COVID on 03/23 and had done well except for some vomiting and diarrhea last week. This resolved but yesterday he developed hypoxia with oxygen saturations of 82 percent prompting evaluation in the ER. He required supplemental oxygen to maintain oxygen saturations and had a lactic acidosis. He was transferred here for continued management. Subjective/Events-last exam He is working with physical therapy. He has no real complaints or concerns. He remains agitated. Objective Exam Vital Signs Vital Signs Date Time Temp Pulse Resp B/P (MAP) Pulse Ox O2 Delivery O2 Flow Rate FiO2 04/07/20 15:48 35.4 47 22 158/70 (99) 96 Nasal Cannula 2.00 04/04/20 11:15 28 Capillary Refill : Less Than 3 Seconds General Appearance: No Apparent Distress, WD/WN Respiratory: Lungs Clear, Normal Breath Sounds, No Respiratory Distress Cardiovascular: Regular Rate, Rhythm, No Edema, No Murmur Gastrointestinal: Normal Bowel Sounds, Non Tender, Soft Extremity: Normal Inspection, Non Tender, No Pedal Edema Neurologic/Psychiatric: Alert, Other (agitated) Skin: Normal Color, Warm/Dry Results/Procedures Lab Patient resulted labs reviewed. Imaging: Reviewed Imaging Report Assessment/Plan Assessment and Plan Assess & Plan/Chief Complaint Acute respiratory failure due to COVID-19 Decadron s/p remdesivir s/p convalescent plasma Supplemental oxygen as needed, currently on 2 L Dementia Delirium Avoid delirium triggers Reorient as needed HTN Continue home meds DVT Prophylaxis: Lovenox Critical Care Critically Ill Patient Diagnosis/Problems Diagnosis/Problems (1) Acute respiratory failure due to COVID-19 Status: Acute (2) Dementia Status: Chronic (3) Delirium Status: Acute (4) HTN (hypertension) Status: Chronic Clinical Quality Measures DVT/VTE Risk/Contraindication: Risk Factor Score Per Nursin RFS Level Per Nursing on Admit: 4+=Very High REJI GALARZA MD Apr 07, 2020 17:43
[2020-04-07 19:57] VITALS: BP 154/70
[2020-04-07] MEDS: DONEPEZIL 10 MG (ARICEPT) TAB PO SCH (20:02)
[2020-04-08 00:45] VITALS: BP 168/78
[2020-04-08] MEDS: MULTIVIT W/MINERALS TAB (THERAGRAN M) PO SCH (05:54)
[2020-04-08] MEDS: dexAMETHasone 6 MG TAB (DECADRON) PO SCH (05:54)
[2020-04-08 08:07] VITALS: BP 185/85
[2020-04-08] MEDS: CLOPIDOGREL 75 MG (PLAVIX) TABLET PO SCH (09:09)
[2020-04-08] MEDS: ASPIRIN E.C. 325 MG (ECOTRIN) TABLET PO SCH ×2 (09:09→09:33)
[2020-04-08] MEDS: lisINopril 40 MG (PRINIVIL) TABLET PO SCH (09:09)
[2020-04-08] MEDS: PANTOPRAZOLE 40 MG (PROTONIX) TAB PO SCH ×2 (09:10→09:33)
[2020-04-08] MEDS: meTOprolol TARTRATE 50 MG (LOPRESSOR) TAB PO SCH (09:26)
[2020-04-08] MEDS: RT-ALBUTEROL INHALER HFA (VENTOLIN HFA) 18 GM IH SCH (10:14)
--- NOTE | 2020-04-08 11:06 | Discharge Summary ---
Discharge Summary Reconcile Patient Problems Problems Reviewed?: Yes Hospital Course Hospital Course Date of Admission: Mar 30, 2020 at 22:08 Admission Diagnosis : Acute respiratory failure due to COVID-19 Family Physician/Provider: Josi Ventura MD Date of Discharge: 04/08/20 Discharge Diagnosis: Acute respiratory failure due to COVID-19 Hospital Course: Juan Alberto Suarez is an 89-year-old male who was admitted with acute respiratory failure due to COVID-19. He was treated with Decadron, Remdesivir, and convalescent plasma. He responded well to treatment. He was requiring 1 L supplemental oxygen continuously at the time of discharge. His course was complicated by debility. He was discharged to a custodial facility for ongoing therapies. He was discharged in stable condition. Labs and Pending Lab Test: Laboratory Tests 04/07/20 14:49: Lab Scanned Report Transfusion Reaction Form Microbiology 04/06/20 Urine Culture - Final, Complete YEAST See Comments 03/30/20 Influenza Types A,B Antigen (KARMEN) - Final, Complete 03/30/20 Blood Culture - Final, Complete No growth Home Meds Active Reported Tylenol Arthritis (Acetaminophen) 650 Mg Tablet.er 650 Mg PO Q4H PRN Diphenhydramine HCl 25 Mg Capsule 25 Mg PO Q6H PRN Vitamin B-12 (Cyanocobalamin (Vitamin B-12)) 1,000 Mcg Tablet 1,000 Mcg PO DAILY Multivitamin 1 Each Tablet 1 Each PO DAILY Plavix (Clopidogrel Bisulfate) 75 Mg Tablet 75 Mg PO DAILY Aspirin EC (Aspirin) 325 Mg Tablet.dr 325 Mg PO DAILY Lisinopril 40 Mg Tablet 40 Mg PO DAILY Metoprolol Tartrate 50 Mg Tablet 50 Mg PO BID WITH MEALS Donepezil HCl 10 Mg Tablet 10 Mg PO HS Tramadol HCl 50 Mg Tablet 50 Mg PO QID PRN Instructions to Patient/Family Assessment/Instructions Take medications as prescribed. Follow up on next senior living rounds. Follow Up Appt.: next senior living rounds Skilled NF Admit to: Certification (SNF) I certify that SNF services are required to be given on an inpatient basis because of the above named patient's need for custodial care on a continuing basis for the conditions(s) for which he/she was receiving inpatient hospital services prior to his/her transfer to the SNF. Correction Facility Order: Nursing Services, Wearing Apparel Assembler-Evaluate & Treat, Physical Therapy-Evaluate & Treat Oxygen Delivery Method: Nasal Cannula Oxygen Flow Rate L/min (Range): 1 Discharge Diet: No Restrictions Daily Activity as Tolerated: Yes Resuscitation Status: Full Code Reji Galarza Apr 08, 2020 11:01 Discharge Physical Exam General: Alert, No Acute Distress Lungs: Clear to Auscultation, Normal Air Movement Heart: Regular Rate, Normal S1, Normal S2, No Murmurs Abdomen: Normal Bowel Sounds, Soft, No Tenderness Extremities: No Edema, No Tenderness/Swelling Skin: No Rashes, No Significant Lesion Neuro: Normal Speech, Other (motor weakness) Psych/Mental Status: Other (agitated) REJI GALARZA MD Apr 08, 2020 11:06
[2020-04-08 11:38] VITALS: BP 184/85
--- NOTE | 2020-04-08 13:29 | NUR ---
PT WAS ON 2L O2 WITH A SATURATION OF 92%. PT WAS PLACED ON ROOM FOR 3 MINUTES AND PT DESATURATED TO 88%. PT THEN WAS PLACED ON 1 LITER WITH A SATURATION OF 95% Addendum: 04/08/20 at 1331 by BRIGITTE IRAHETA RT Amended: Links added.
--- NOTE | 2020-04-08 14:05 | NUR ---
Report given to Tony, nurse at [facility] ([phone]) where patient is discharging to this afternoon. Reviewed patients medication list and answered any questions Tony had.
== END 2020-04-08 14:30 | DRG 871 ==
LOC: EDUNIT# 17:07 → ER FS 17:08 → 4TH 22:08
PROVIDERS: ADMIT Internal Medicine; ATTEND Internal Medicine
PROC: XW033E5 Introduction of Remdesivir Anti-infective into Peripheral Vein, Percutaneous Approach, New Technology Group 5 (ICD-10-PCS; principal; 2020-03-31)
PROC: XW13325 Transfusion of Convalescent Plasma (Nonautologous) into Peripheral Vein, Percutaneous Approach, New Technology Group 5 (ICD-10-PCS; 2020-03-31)
DX: A41.89 Other specified sepsis (principal); U07.1 COVID-19; J96.01 Acute respiratory failure with hypoxia; E87.2 Acidosis; N17.9 Acute kidney failure, unspecified; R65.20 Severe sepsis without septic shock; I95.9 Hypotension, unspecified; F03.90 Unspecified dementia, unspecified severity, without behavioral disturbance, psychotic disturbance, mood disturbance, and anxiety; I10 Essential (primary) hypertension; E78.00 Pure hypercholesterolemia, unspecified; H91.90 Unspecified hearing loss, unspecified ear; J30.2 Other seasonal allergic rhinitis; N40.0 Benign prostatic hyperplasia without lower urinary tract symptoms; L50.9 Urticaria, unspecified; M19.91 Primary osteoarthritis, unspecified site; Z86.73 Personal history of transient ischemic attack (TIA), and cerebral infarction without residual deficits; Z95.5 Presence of coronary angioplasty implant and graft; Z87.891 Personal history of nicotine dependence; Z86.79 Personal history of other diseases of the circulatory system
CPT/HCPCS: 36415; 71045; 80053; 81000; 83605; 83735; 84145; 85007; 85025; 85027; 85610; 85730; 86900; 86901; 87040; 87088; 87804; 93005; 94640; 94664; 94761